=== PATIENT | female | born 1965 | race Caucasian/White ===

== ENCOUNTER → 2018-04-18 12:41 | Outpatient (CLI) | payer OTHER, SELFPAY | PROVIDERS: Family Provider Family Medicine; PCP Family Medicine; Visit Provider Family Medicine | DX: G56.21 Lesion of ulnar nerve, right upper limb (principal) | CPT/HCPCS: 95886; 95909 ==

== ENCOUNTER → 2018-04-18 14:17 | Outpatient (CLI) | payer OTHER, SELFPAY ==
--- NOTE | 2018-04-18 | DI.US.S_ITS ---
ULTRASOUND OF LEFT BREAST: 04/18/2018 CLINICAL: 6 month follow-up of prominent duct. Comparison is made to exams dated: 08/10/2017 ultrasound, 08/10/2017 mammogram, 07/31/2016 ultrasound, 07/31/2016 mammogram, 11/03/2015 ultrasound, and 11/03/2015 ultrasound [facility]. Color flow ultrasound of the left breast was performed on the areas of interest. Jacobo scale images of the real-time examination were reviewed. There is a stable benign dilated duct in the left breast at 6 o'clock anterior depth. This dilated duct displays internal echoes. Color flow imaging demonstrates that there is no vascularity present. IMPRESSION: BENIGN There is no sonographic evidence of malignancy. The stable dilated duct in the left breast is consistent with debris and is benign. A 1 year screening mammogram is recommended. This exam was interpreted at Station ID: [id number]. Electronically Signed By: Vandana mcnair/shailesh:04/18/2018 14:53:00 letter sent: Normal Exam Ultrasound BI-RADS: 2 Benign
== END ==
PROVIDERS: PCP Family Medicine; Visit Provider Family Medicine
DX: N60.42 Mammary duct ectasia of left breast (principal)
CPT/HCPCS: 76642; 95886; 95909

== ENCOUNTER 2018-07-08 14:30 | Outpatient (RCR) | payer OTHER, SELFPAY ==
--- NOTE | 2018-03-20 12:10 | PT.OIE ---
Current Diagnoses Other cervical disc degeneration, unspecified cervical region (03/20/18) Abnormal posture (03/20/18) Headache (03/20/18) Weakness (03/20/18) Past Surgical History Status post LASIK surgery Status post hysterectomy Provider Visit Care Team Role Provider Type Ok Chacko MD Attending Provider Physician Family Provider Primary Care Provider Specialty: Family Practice Address: [address] [place] [address], [facility] Email: .[facility] Physical Therapy Initial Evaluation PT-OP-A Visit Information Start: 01/21/18 07:29 Freq: Status: Active Protocol: Document 03/20/18 07:22 [facility] (Rec: 03/20/18 12:05 [facility] [id number]) Out-Patient Physical Therapy Visit Information Visit Information Visit Type Progress Note Visit Start Time 07:30 Visit Stop Time 08:30 Total Visit Minutes 60 Number of ENERGY CONSERVATION REPRESENTATIVE Visits 0 PT-OP-C Subjective Start: 01/21/18 07:29 Freq: Status: Active Protocol: Document 03/20/18 07:22 [facility] (Rec: 03/20/18 12:05 [facility] [id number]) OP-PT Subjective Patient Comments Patient Comments Pt reports she can ride her horse without pain and that has helped with her pain and dec in migraines over past week. Over all inc migraines and pain since her last PT session. Patient Questionnaires Neck Disability Index NDI Score (good day d/t off work for past 2 weeks) 30% PT-OP-K Range of Motion Start: 01/28/18 07:23 Freq: Status: Active Protocol: Document 03/20/18 07:22 [facility] (Rec: 03/20/18 12:05 [facility] [id number]) Cervical Spine Range of Motion Cervical Spine Active Degrees Testing Position Sitting Flexion 53 Extension 33 Rotation Left 40 Rotation Right 40 Lateral Flexion Left 27 Lateral Flexion Right 23 Comments pain w/SB & rot; feels like stop with motions PT-OP-M Strength Start: 01/28/18 07:23 Freq: Status: Active Protocol: Document 03/20/18 07:22 [facility] (Rec: 03/20/18 12:05 [facility] [id number]) Shoulder Strength Shoulder Manual Muscle Testing Right Flexion 5 Normal Extension 4 Good Abduction (C5) 5 Normal External Rotation 5 Normal Internal Rotation 5 Normal Left Flexion 4+ Good+ Extension 5 Normal Abduction (C5) 4+ Good+ External Rotation 4+ Good+ Horizontal Abduction 4+ Good+ PT-OP-Q Treatments Start: 01/21/18 07:29 Freq: Status: Active Protocol: Document 03/20/18 07:22 [facility] (Rec: 03/20/18 12:05 [facility] [id number]) Therapeutic Exercises Sidelying Exercises 1 Sidelying Exercise Name self rib mob Side bilateral Sitting Exercises 2 Sitting Exercise Name UT & LS stretches Manual Therapy Treatment Soft Tissue Mobilization 2 Body Location UT & LS Mobilization Type Rolling Intensity/Depth Moderate Body Position Sitting 1 Body Location post C-T junction Mobilization Type Myofascial Release Body Position Sitting Comments FM w/neck flex & rotations Joint Mobilizations 2 Joint C7 Direction L transverse FM Body Position Sitting 1 Joint 1st rib mob Direction caudal Body Position sit & s/l PT-OP-R Modalities Start: 01/21/18 07:29 Freq: Status: Active Protocol: Document 03/20/18 07:22 [facility] (Rec: 03/20/18 12:05 [facility] [id number]) Hot Pack/Cold Pack Treatment Hot Pack Location cervical Patient Position Hooklying Treatment Duration (minutes) 15 PT-OP-T Assessment and Plan Start: 01/21/18 07:29 Freq: Status: Active Protocol: Document 03/20/18 07:22 [facility] (Rec: 03/20/18 12:05 [facility] [id number]) Physical Therapy Assessment Rehab Potential Rehabilitation Potential Good Impairments Impairments Functional Activities Pain Posture ROM Soft Tissue Mobility Strength Goals Six Impairment migraines Short Term Goal (STG) 1x a week migraine STG Duration 04/20/18 Shelter Goal (LTG) no reported migranes for 2 weeks to prevent missing work. LTG Duration 05/21/18 Five Impairment functional ability Shelter Goal (LTG) Able to ride motorcycle without pain and tolerate full day of work with only inc to no greater than 2/10 pain. LTG Duration 05/21/18 Four Impairment NDI Shelter Goal (LTG) total 3 to show functional improvement LTG Duration 05/21/18 Three Impairment MMT Short Term Goal (STG) Indep HEP STG Duration 04/20/18 Ethanol Operations Manager Goal (LTG) 5/5 strength to UE to allow greater ease with daily life LTG Duration 05/21/18 Two Impairment ROM Shelter Goal (LTG) WNL Cervical ROM to allow pt to drive and work without pain LTG Duration 05/21/18 One Impairment posture Shelter Goal (LTG) good posture LTG Duration 05/21/18 Progress Towards Goals Progress Comments Pt has progressed well with prior therapy. D/t waiting for authorization, pt has had a lull in services for 2 months. Pt is motivated and has been doing home stretches & traction. She has had a decline in her functional ability since last time she was seen by PT d/t no PT services. She is noting improvement since having sit to stand desk, and is doing well today but she is just coming off 2 weeks of vacation and the last week she has not had to do much extended sitting. Assessment Summary Assessment Pt cont to have thoracic and cervical restrictions creating limitations in her ROM & functional abilities. Physical Therapy Plan Frequency and Duration Frequency of Treatment 1-2x/week Duration of Treatment 2 months Plan of Care Start Date 03/20/18 Plan of Care End Date 05/21/18 Therapeutic Interventions Therapeutic Interventions Home Exercise Program Joint Mobilizations Manual Therapy Self-Care/Home Management Soft Tissue Mobilization Taping Therapeutic Exercises Modalities Cold Pack/Ice Massage Electric Stimulation Hot Packs Traction- Mechanical Ultrasound Next Visit Focus/Plan Next Note Type Treatment Note Next Visit Plan thoracic mobs & rib mobs
--- NOTE | 2018-03-20 12:10 | PT.OPPOC ---
Current Diagnoses Other cervical disc degeneration, unspecified cervical region (03/20/18) Abnormal posture (03/20/18) Headache (03/20/18) Weakness (03/20/18) Provider Visit Care Team Role Provider Type Ok Chacko MD Attending Provider Physician Family Provider Primary Care Provider Specialty: Family Practice Address: [facility] [place], [address] Email: [email or web address] Plan Of Care PT-OP-T Assessment and Plan Start: 01/21/18 07:29 Freq: Status: Active Protocol: Document 03/20/18 07:22 [facility] (Rec: 03/20/18 12:05 [facility] [id number]) Physical Therapy Assessment Rehab Potential Rehabilitation Potential Good Impairments Impairments Functional Activities Pain Posture ROM Soft Tissue Mobility Strength Goals Six Impairment migraines Short Term Goal (STG) 1x a week migraine STG Duration 04/20/18 Senior Living Goal (LTG) no reported migranes for 2 weeks to prevent missing work. LTG Duration 05/21/18 Five Impairment functional ability Nurse Informatics Educator Goal (LTG) Able to ride motorcycle without pain and tolerate full day of work with only inc to no greater than 2/10 pain. LTG Duration 05/21/18 Four Impairment NDI Nurse Informatics Educator Goal (LTG) total 3 to show functional improvement LTG Duration 05/21/18 Three Impairment MMT Short Term Goal (STG) Indep HEP STG Duration 04/20/18 Senior Living Goal (LTG) 5/5 strength to UE to allow greater ease with daily life LTG Duration 05/21/18 Two Impairment ROM Senior Living Goal (LTG) WNL Cervical ROM to allow pt to drive and work without pain LTG Duration 05/21/18 One Impairment posture Nurse Informatics Educator Goal (LTG) good posture LTG Duration 05/21/18 Progress Towards Goals Progress Comments Pt has progressed well with prior therapy. D/t waiting for authorization, pt has had a lull in services for 2 months. Pt is motivated and has been doing home stretches & traction. She has had a decline in her functional ability since last time she was seen by PT d/t no PT services. She is noting improvement since having sit to stand desk, and is doing well today but she is just coming off 2 weeks of vacation and the last week she has not had to do much extended sitting. Assessment Summary Assessment Pt cont to have thoracic and cervical restrictions creating limitations in her ROM & functional abilities. Physical Therapy Plan Frequency and Duration Frequency of Treatment 1-2x/week Duration of Treatment 2 months Plan of Care Start Date 03/20/18 Plan of Care End Date 05/21/18 Therapeutic Interventions Therapeutic Interventions Home Exercise Program Joint Mobilizations Manual Therapy Self-Care/Home Management Soft Tissue Mobilization Taping Therapeutic Exercises Modalities Cold Pack/Ice Massage Electric Stimulation Hot Packs Traction- Mechanical Ultrasound Next Visit Focus/Plan Next Note Type Treatment Note Next Visit Plan thoracic mobs & rib mobs Plan of Care Dates Plan of Care Start Date 03/20/18 Plan of Care End Date 05/21/18 Please Sign and Return: I have reviewed this Plan of Care and certify that the skilled therapy services above are required to meet the patient?s needs. Physician Signature Date Printed Name and Credentials Clinical Instructor Signature Printed Name and Credentials
--- NOTE | 2018-04-24 10:53 | PT.OTN ---
Current Diagnoses Other cervical disc degeneration, unspecified cervical region (04/24/18) Abnormal posture (04/24/18) Headache (04/24/18) Weakness (04/24/18) Physical Therapy Treatment Note PT-OP-A Visit Information Start: 01/21/18 07:29 Freq: Status: Active Protocol: Document 04/24/18 10:45 [facility] (Rec: 04/24/18 10:53 [facility] [id number]) Out-Patient Physical Therapy Visit Information Visit Information Visit Type Treatment Note Visit Start Time 07:30 Visit Stop Time 08:30 Total Visit Minutes 60 Visit Number 10/03 Number of BOILER MAKER Visits 0 PT-OP-C Subjective Start: 01/21/18 07:29 Freq: Status: Active Protocol: Document 04/24/18 10:45 [facility] (Rec: 04/24/18 10:53 [facility] [id number]) OP-PT Subjective Patient Comments Patient Comments Pt reports migraines 3-4 times /week. Reports nerve conduction study did not find any location for impingement. Report she was told it may be coming from her neck. Notes she has been riding her horse 3 to 4 times a week to help with her migraines. She has to often leave work part way through the day to go home and take her migraine pill and sleep then come back a few hours later. Reports pain down RUE into palmar 4th and 5th digit with ability to reproduce with palpation of scalenes. PT-OP-K Range of Motion Start: 01/28/18 07:23 Freq: Status: Active Protocol: Document 03/20/18 07:22 [facility] (Rec: 03/20/18 12:05 [facility] [id number]) Cervical Spine Range of Motion Cervical Spine Active Degrees Testing Position Sitting Flexion 53 Extension 33 Rotation Left 40 Rotation Right 40 Lateral Flexion Left 27 Lateral Flexion Right 23 Comments pain w/SB & rot; feels like stop with motions PT-OP-M Strength Start: 01/28/18 07:23 Freq: Status: Active Protocol: Document 03/20/18 07:22 [facility] (Rec: 03/20/18 12:05 [facility] [id number]) Shoulder Strength Shoulder Manual Muscle Testing Right Flexion 5 Normal Extension 4 Good Abduction (C5) 5 Normal External Rotation 5 Normal Internal Rotation 5 Normal Left Flexion 4+ Good+ Extension 5 Normal Abduction (C5) 4+ Good+ External Rotation 4+ Good+ Horizontal Abduction 4+ Good+ PT-OP-Q Treatments Start: 01/21/18 07:29 Freq: Status: Active Protocol: Document 04/24/18 10:45 [facility] (Rec: 04/24/18 10:53 [facility] [id number]) Therapeutic Exercises Supine Exercises 2 Supine Exercise Name diaphragmatic breathing Comments w/ progression into quadrants 1 Supine Exercise Name axial elongation Sidelying Exercises 2 Sidelying Exercise Name roll & reach Standing Exercises 1 Standing Exercise Name pec corner stretch Manual Therapy Treatment Soft Tissue Mobilization 3 Body Location R diaphram Mobilization Type Sustained Pressure Comments FM w/LTR 2 Body Location UT & LS Mobilization Type Rolling Intensity/Depth Moderate Body Position Sitting 1 Body Location post C-T junction Mobilization Type Myofascial Release Body Position Sitting Comments FM w/neck flex & rotations Joint Mobilizations 1 Joint 1st rib mob Direction caudal Body Position sit & s/l Self-Care/Home Management Treatment Activities Self-Care/Home Management Activities Discussed doing foam roll exercises on a towel until she is less sensitive PT-OP-R Modalities Start: 01/21/18 07:29 Freq: Status: Active Protocol: Document 04/24/18 10:45 [facility] (Rec: 04/24/18 10:53 [facility] [id number]) Hot Pack/Cold Pack Treatment Hot Pack Location cervical Patient Position Hooklying Treatment Duration (minutes) 15 PT-OP-T Assessment and Plan Start: 01/21/18 07:29 Freq: Status: Active Protocol: Document 04/24/18 10:45 [facility] (Rec: 04/24/18 10:53 [facility] [id number]) Physical Therapy Assessment Goals Six Impairment migraines Short Term Goal (STG) 1x a week migraine STG Duration 04/20/18 Half-Way Goal (LTG) no reported migranes for 2 weeks to prevent missing work. LTG Duration 05/21/18 Five Impairment functional ability Half-Way Goal (LTG) Able to ride motorcycle without pain and tolerate full day of work with only inc to no greater than 2/10 pain. LTG Duration 05/21/18 Four Impairment NDI Manager Assurance Goal (LTG) total 3 to show functional improvement LTG Duration 05/21/18 Three Impairment MMT Short Term Goal (STG) Indep HEP STG Duration 04/20/18 Half-Way Goal (LTG) 5/5 strength to UE to allow greater ease with daily life LTG Duration 05/21/18 Two Impairment ROM Manager Assurance Goal (LTG) WNL Cervical ROM to allow pt to drive and work without pain LTG Duration 05/21/18 One Impairment posture Manager Assurance Goal (LTG) good posture LTG Duration 05/21/18 Assessment Summary Assessment Pt had tension & dec ROM with RUE elevation with STM to diaphram, demonstrating restiction in R diaphram limiting her R UE movement. Pt has significant soft tissue tightness since not attending PT regularly. She has dec diaphramatic breathing into R side of abdomen. Physical Therapy Plan Frequency and Duration Frequency of Treatment 1-2x/week Duration of Treatment 2 months Plan of Care Start Date 03/20/18 Plan of Care End Date 05/21/18 Next Visit Focus/Plan Next Note Type Treatment Note Next Visit Plan thoracic mobs & rib mobs; cont to work on diaphram, review further thoracic stretches
--- NOTE | 2018-05-01 09:12 | PT.OTN ---
Current Diagnoses Other cervical disc degeneration, unspecified cervical region (05/01/18) Abnormal posture (05/01/18) Headache (05/01/18) Weakness (05/01/18) Physical Therapy Treatment Note PT-OP-A Visit Information Start: 01/21/18 07:29 Freq: Status: Active Protocol: Document 05/01/18 07:30 [facility] (Rec: 05/01/18 09:09 [facility] [id number]) Out-Patient Physical Therapy Visit Information Visit Information Visit Type Treatment Note Visit Start Time 07:30 Visit Stop Time 08:25 Total Visit Minutes 55 Visit Number 11/03 Number of BARBER SHOP MANAGER Visits 0 PT-OP-C Subjective Start: 01/21/18 07:29 Freq: Status: Active Protocol: Document 05/01/18 07:30 [facility] (Rec: 05/01/18 09:09 [facility] [id number]) OP-PT Subjective Patient Comments Patient Comments Pt reports 3 migraines since last visit but is taking migraine meds daily before bed to prevent one from starting. Report she has had difficulty sleeping. PT-OP-K Range of Motion Start: 01/28/18 07:23 Freq: Status: Active Protocol: Document 03/20/18 07:22 [facility] (Rec: 03/20/18 12:05 [facility] [id number]) Cervical Spine Range of Motion Cervical Spine Active Degrees Testing Position Sitting Flexion 53 Extension 33 Rotation Left 40 Rotation Right 40 Lateral Flexion Left 27 Lateral Flexion Right 23 Comments pain w/SB & rot; feels like stop with motions PT-OP-M Strength Start: 01/28/18 07:23 Freq: Status: Active Protocol: Document 03/20/18 07:22 [facility] (Rec: 03/20/18 12:05 [facility] [id number]) Shoulder Strength Shoulder Manual Muscle Testing Right Flexion 5 Normal Extension 4 Good Abduction (C5) 5 Normal External Rotation 5 Normal Internal Rotation 5 Normal Left Flexion 4+ Good+ Extension 5 Normal Abduction (C5) 4+ Good+ External Rotation 4+ Good+ Horizontal Abduction 4+ Good+ PT-OP-Q Treatments Start: 01/21/18 07:29 Freq: Status: Active Protocol: Document 05/01/18 07:30 [facility] (Rec: 05/01/18 09:09 [facility] [id number]) Manual Therapy Treatment Soft Tissue Mobilization 4 Body Location cranial fascia Mobilization Type Myofascial Release 2 Body Location UT & LS Mobilization Type Rolling Intensity/Depth Moderate Body Position Sitting 1 Body Location post C-T junction Mobilization Type Myofascial Release Body Position Sitting Comments FM w/neck flex & rotations Joint Mobilizations 5 Joint cranial glides FM 4 Joint General PA to T3-7 Comments FM w/deep breathing 3 Joint T1-3 Direction transverse FM & PA 2 Joint C7 Direction L transverse FM Body Position Sitting 1 Joint 1st rib mob Direction caudal Body Position Supine PT-OP-R Modalities Start: 01/21/18 07:29 Freq: Status: Active Protocol: Document 05/01/18 07:30 [facility] (Rec: 05/01/18 09:10 [facility] [id number]) Hot Pack/Cold Pack Treatment Cold Pack Location cervical & upper thoracic Patient Position Hooklying Treatment Duration (minutes) 10 PT-OP-T Assessment and Plan Start: 01/21/18 07:29 Freq: Status: Active Protocol: Document 05/01/18 07:30 [facility] (Rec: 05/01/18 09:09 [facility] [id number]) Physical Therapy Assessment Goals Six Impairment migraines Short Term Goal (STG) 1x a week migraine STG Duration 04/20/18 Penitentiary Goal (LTG) no reported migranes for 2 weeks to prevent missing work. LTG Duration 05/21/18 Five Impairment functional ability Manager Privacy Goal (LTG) Able to ride motorcycle without pain and tolerate full day of work with only inc to no greater than 2/10 pain. LTG Duration 05/21/18 Four Impairment NDI Manager Privacy Goal (LTG) total 3 to show functional improvement LTG Duration 05/21/18 Three Impairment MMT Short Term Goal (STG) Indep HEP STG Duration 04/20/18 Penitentiary Goal (LTG) 5/5 strength to UE to allow greater ease with daily life LTG Duration 05/21/18 Two Impairment ROM Penitentiary Goal (LTG) WNL Cervical ROM to allow pt to drive and work without pain LTG Duration 05/21/18 One Impairment posture Penitentiary Goal (LTG) good posture LTG Duration 05/21/18 Assessment Summary Assessment Pt has significant tension in R cranial region and L UT/LS/ scalenes. She had relief of tension with 2 tennis balls under cervical region. Physical Therapy Plan Frequency and Duration Frequency of Treatment 1-2x/week Duration of Treatment 2 months Plan of Care Start Date 03/20/18 Plan of Care End Date 05/21/18 Next Visit Focus/Plan Next Note Type Treatment Note Next Visit Plan thoracic mobs & rib mobs; cont to work on diaphram, review further thoracic stretches
--- NOTE | 2018-05-08 09:46 | PT.OTN ---
Current Diagnoses Other cervical disc degeneration, unspecified cervical region (05/08/18) Abnormal posture (05/08/18) Headache (05/08/18) Weakness (05/08/18) Physical Therapy Treatment Note PT-OP-A Visit Information Start: 01/21/18 07:29 Freq: Status: Active Protocol: Document 05/08/18 07:30 [facility] (Rec: 05/08/18 09:46 [facility] [id number]) Out-Patient Physical Therapy Visit Information Visit Information Visit Type Treatment Note Visit Start Time 07:30 Visit Stop Time 08:30 Total Visit Minutes 60 Visit Number 12/01 Number of BOAT WRAPPER Visits 0 PT-OP-C Subjective Start: 01/21/18 07:29 Freq: Status: Active Protocol: Document 05/08/18 07:30 [facility] (Rec: 05/08/18 09:46 [facility] [id number]) OP-PT Subjective Patient Comments Patient Comments Pt reports she has to take a migraine pill at night otherwise she gets a migraine at night and cannot sleep. PT-OP-K Range of Motion Start: 01/28/18 07:23 Freq: Status: Active Protocol: Document 03/20/18 07:22 [facility] (Rec: 03/20/18 12:05 [facility] [id number]) Cervical Spine Range of Motion Cervical Spine Active Degrees Testing Position Sitting Flexion 53 Extension 33 Rotation Left 40 Rotation Right 40 Lateral Flexion Left 27 Lateral Flexion Right 23 Comments pain w/SB & rot; feels like stop with motions PT-OP-M Strength Start: 01/28/18 07:23 Freq: Status: Active Protocol: Document 03/20/18 07:22 [facility] (Rec: 03/20/18 12:05 [facility] [id number]) Shoulder Strength Shoulder Manual Muscle Testing Right Flexion 5 Normal Extension 4 Good Abduction (C5) 5 Normal External Rotation 5 Normal Internal Rotation 5 Normal Left Flexion 4+ Good+ Extension 5 Normal Abduction (C5) 4+ Good+ External Rotation 4+ Good+ Horizontal Abduction 4+ Good+ PT-OP-Q Treatments Start: 01/21/18 07:29 Freq: Status: Active Protocol: Document 05/08/18 07:30 [facility] (Rec: 05/08/18 09:46 [facility] [id number]) Therapeutic Exercises Standing Exercises 3 Standing Exercise Name ext shoulder Equipment Used L1 Reps/Minutes 10 2 Standing Exercise Name row Equipment Used L1 Reps/Minutes 10 Therapeutic Activity Therapeutic Activity 1 Name seated posture positioning Manual Therapy Treatment Soft Tissue Mobilization 5 Body Location Rhomboids Mobilization Type Myofascial Release Intensity/Depth Superficial 3 Body Location Pec Mobilization Type Rolling Joint Mobilizations 4 Joint General PA to T3-7 Comments FM w/deep breathing & rotation & R glides PT-OP-R Modalities Start: 01/21/18 07:29 Freq: Status: Active Protocol: Document 05/08/18 07:30 [facility] (Rec: 05/08/18 09:46 [facility] [id number]) Hot Pack/Cold Pack Treatment Hot Pack Location cervical & thoracic Patient Position Hooklying Treatment Duration (minutes) 15 PT-OP-T Assessment and Plan Start: 01/21/18 07:29 Freq: Status: Active Protocol: Document 05/08/18 07:30 [facility] (Rec: 05/08/18 09:46 [facility] [id number]) Physical Therapy Assessment Goals Six Impairment migraines Short Term Goal (STG) 1x a week migraine STG Duration 04/20/18 Skilled Nursing Goal (LTG) no reported migranes for 2 weeks to prevent missing work. LTG Duration 05/21/18 Five Impairment functional ability C[employer] Operator Goal (LTG) Able to ride motorcycle without pain and tolerate full day of work with only inc to no greater than 2/10 pain. LTG Duration 05/21/18 Four Impairment NDI [employer] Operator Goal (LTG) total 3 to show functional improvement LTG Duration 05/21/18 Three Impairment MMT Short Term Goal (STG) Indep HEP STG Duration 04/20/18 Skilled Nursing Goal (LTG) 5/5 strength to UE to allow greater ease with daily life LTG Duration 05/21/18 Two Impairment ROM [employer] Operator Goal (LTG) WNL Cervical ROM to allow pt to drive and work without pain LTG Duration 05/21/18 One Impairment posture Skilled Nursing Goal (LTG) good posture LTG Duration 05/21/18 Assessment Summary Assessment Pt with cont difficulty with posture. Improved with mult times cueing. [place] tight in RUE after rx. Pec on R side was significantly tight with inc thoracic tightness. Physical Therapy Plan Frequency and Duration Frequency of Treatment 1-2x/week Duration of Treatment 2 months Plan of Care Start Date 03/20/18 Plan of Care End Date 05/21/18 Next Visit Focus/Plan Next Note Type Treatment Note Next Visit Plan thoracic mobs & rib mobs; cont to work on diaphram, review further thoracic stretches
--- NOTE | 2018-05-27 16:00 | PT.OTN ---
Current Diagnoses Other cervical disc degeneration, unspecified cervical region (05/27/18) Abnormal posture (05/27/18) Headache (05/27/18) Weakness (05/27/18) Physical Therapy Treatment Note PT-OP-A Visit Information Start: 01/21/18 07:29 Freq: Status: Active Protocol: Document 05/27/18 07:34 [facility] (Rec: 05/27/18 15:59 [facility] [id number]) Out-Patient Physical Therapy Visit Information Visit Information Visit Type Treatment Note Visit Start Time 07:30 Visit Stop Time 08:40 Total Visit Minutes 70 Visit Number 01/01 Number of COOK PRESSURE Visits 0 PT-OP-C Subjective Start: 01/21/18 07:29 Freq: Status: Active Protocol: Document 05/27/18 07:34 [facility] (Rec: 05/27/18 16:00 [facility] [id number]) OP-PT Subjective Patient Comments Patient Comments Reports migraines still most nights PT-OP-K Range of Motion Start: 01/28/18 07:23 Freq: Status: Active Protocol: Document 05/27/18 07:34 [facility] (Rec: 05/27/18 07:47 [facility] [id number]) Cervical Spine Range of Motion Cervical Spine Active Degrees Testing Position Sitting Flexion 60 Extension 43 Rotation Left 52 Rotation Right 41 Lateral Flexion Left 25 Lateral Flexion Right 35 Comments pain w/SB & ext PT-OP-M Strength Start: 01/28/18 07:23 Freq: Status: Active Protocol: Document 03/20/18 07:22 [facility] (Rec: 03/20/18 12:05 [facility] [id number]) Shoulder Strength Shoulder Manual Muscle Testing Right Flexion 5 Normal Extension 4 Good Abduction (C5) 5 Normal External Rotation 5 Normal Internal Rotation 5 Normal Left Flexion 4+ Good+ Extension 5 Normal Abduction (C5) 4+ Good+ External Rotation 4+ Good+ Horizontal Abduction 4+ Good+ PT-OP-Q Treatments Start: 01/21/18 07:29 Freq: Status: Active Protocol: Document 05/27/18 07:34 [facility] (Rec: 05/27/18 15:59 [facility] [id number]) Therapeutic Activity Therapeutic Activity 2 Name standing postural positioning 1 Name seated posture positioning Manual Therapy Treatment Soft Tissue Mobilization 2 Body Location UT & LS & scalenes Mobilization Type Rolling Intensity/Depth Moderate Body Position Sitting 1 Body Location post & ant C-T junction Mobilization Type Myofascial Release Body Position Sitting Comments FM w/neck flex & rotations & axial elongation PT-OP-R Modalities Start: 01/21/18 07:29 Freq: Status: Active Protocol: Document 05/27/18 07:34 [facility] (Rec: 05/27/18 15:59 [facility] [id number]) Hot Pack/Cold Pack Treatment Hot Pack Location cervical & thoracic Patient Position Hooklying Treatment Duration (minutes) 15 Spinal Traction Traction Treatment Cervical Method Mechanical Patient Position Hooklying Force Applied (Pounds) 20 Duration of Treatment (Minutes) 10 Heating Pad Applied No PT-OP-T Assessment and Plan Start: 01/21/18 07:29 Freq: Status: Active Protocol: Document 05/27/18 07:34 [facility] (Rec: 05/27/18 15:59 [facility] [id number]) Physical Therapy Assessment Impairments Impairments Functional Activities Pain Posture ROM Soft Tissue Mobility Strength Goals Six Impairment migraines Short Term Goal (STG) 1x a week migraine STG Duration 06/26/18 [facility] Goal (LTG) no reported migranes for 2 weeks to prevent missing work. 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 LTG Duration 07/27/18 Four Impairment NDI [facility] Goal (LTG) total 3 to show functional improvement LTG Duration 07/27/18 Three Impairment MMT Short Term Goal (STG) Indep HEP STG Duration 06/26/18 [facility] Goal (LTG) 5/5 strength to UE to allow greater ease with daily life LTG Duration 07/27/18 Two Impairment ROM [facility] Goal (LTG) WNL Cervical ROM to allow pt to drive and work without pain LTG Duration 07/27/18 One Impairment posture Food Bagging Machine Operator Goal (LTG) good posture LTG Duration 07/27/1868-[id number] cues Assessment Summary Assessment Pt cont to require cueing for postural stability and encouraged to get on foam roll to help. Physical Therapy Plan Frequency and Duration Frequency of Treatment 1-2x/week Duration of Treatment 2 months Plan of Care Start Date 05/27/18 Plan of Care End Date 07/27/18 Therapeutic Interventions Therapeutic Interventions Home Exercise Program Joint Mobilizations Manual Therapy Self-Care/Home Management Soft Tissue Mobilization Taping Therapeutic Exercises Modalities Cold Pack/Ice Massage Electric Stimulation Hot Packs Traction- Mechanical Ultrasound Next Visit Focus/Plan Next Note Type Treatment Note Next Visit Plan Cont to work on postural stability
--- NOTE | 2018-05-27 16:00 | PT.OPPOC ---
Current Diagnoses Other cervical disc degeneration, unspecified cervical region (05/27/18) Abnormal posture (05/27/18) Headache (05/27/18) Weakness (05/27/18) Provider Visit Care Team Role Provider Type Ok Chacko MD Attending Provider Physician Family Provider Primary Care Provider Specialty: Family Practice Address: [address] [place], [address] Email: [email or web address] Plan Of Care PT-OP-T Assessment and Plan Start: 01/21/18 07:29 Freq: Status: Active Protocol: Document 05/27/18 07:34 [facility] (Rec: 05/27/18 15:59 [facility] [id number]) Physical Therapy Assessment Impairments Impairments Functional Activities Pain Posture ROM Soft Tissue Mobility Strength Goals Six Impairment migraines Short Term Goal (STG) 1x a week migraine STG Duration 06/26/18 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 LTG Duration 07/27/18 Five Impairment functional ability Marble Polisher Goal (LTG) Able to ride motorcycle without pain and tolerate full day of work with only inc to no greater than 2/10 pain. LTG Duration 07/27/18 Four Impairment NDI Marble Polisher Goal (LTG) total 3 to show functional improvement LTG Duration 07/27/18 Three Impairment MMT Short Term Goal (STG) Indep HEP STG Duration 06/26/18 Marble Polisher Goal (LTG) 5/5 strength to UE to allow greater ease with daily life LTG Duration 07/27/18 Two Impairment ROM [facility] Goal (LTG) WNL Cervical ROM to allow pt to drive and work without pain LTG Duration 07/27/18 One Impairment posture Marble Polisher Goal (LTG) good posture LTG Duration 07/27/1875-[id number] cues Assessment Summary Assessment Pt cont to require cueing for postural stability and encouraged to get on foam roll to help. Physical Therapy Plan Frequency and Duration Frequency of Treatment 1-2x/week Duration of Treatment 2 months Plan of Care Start Date 05/27/18 Plan of Care End Date 07/27/18 Therapeutic Interventions Therapeutic Interventions Home Exercise Program Joint Mobilizations Manual Therapy Self-Care/Home Management Soft Tissue Mobilization Taping Therapeutic Exercises Modalities Cold Pack/Ice Massage Electric Stimulation Hot Packs Traction- Mechanical Ultrasound Next Visit Focus/Plan Next Note Type Treatment Note Next Visit Plan Cont to work on postural stability Plan of Care Dates Plan of Care Start Date 05/27/18 Plan of Care End Date 07/27/18 Please Sign and Return: I have reviewed this Plan of Care and certify that the skilled therapy services above are required to meet the patient?s needs. Physician Signature Date Printed Name and Credentials Clinical Instructor Signature Printed Name and Credentials
--- NOTE | 2018-06-19 08:28 | PT.OTN ---
Current Diagnoses Other cervical disc degeneration, unspecified cervical region (06/19/18) Abnormal posture (06/19/18) Headache (06/19/18) Weakness (06/19/18) Physical Therapy Treatment Note PT-OP-A Visit Information Start: 01/21/18 07:29 Freq: Status: Active Protocol: Document 06/19/18 08:17 [facility] (Rec: 06/19/18 08:28 [facility] [id number]) Out-Patient Physical Therapy Visit Information Visit Information Visit Type Treatment Note Visit Start Time 07:30 Visit Stop Time 08:30 Total Visit Minutes 60 Visit Number 01/31 Number of WRAPPER REWINDER Visits 0 PT-OP-C Subjective Start: 01/21/18 07:29 Freq: Status: Active Protocol: Document 06/19/18 08:17 [facility] (Rec: 06/19/18 08:28 [facility] [id number]) OP-PT Subjective Patient Comments Patient Comments Pt reports she missed a few appts: first because she awoke with migraine and the others because she was on vacation. She felt great over vacation. She had 1 CARMICHAEL start in the AM but she started walking immediately and had caffeine and felt better. PT-OP-K Range of Motion Start: 01/28/18 07:23 Freq: Status: Active Protocol: Document 05/27/18 07:34 [facility] (Rec: 05/27/18 07:47 [facility] [id number]) Cervical Spine Range of Motion Cervical Spine Active Degrees Testing Position Sitting Flexion 60 Extension 43 Rotation Left 52 Rotation Right 41 Lateral Flexion Left 25 Lateral Flexion Right 35 Comments pain w/SB & ext PT-OP-M Strength Start: 01/28/18 07:23 Freq: Status: Active Protocol: Document 03/20/18 07:22 [facility] (Rec: 03/20/18 12:05 [facility] [id number]) Shoulder Strength Shoulder Manual Muscle Testing Right Flexion 5 Normal Extension 4 Good Abduction (C5) 5 Normal External Rotation 5 Normal Internal Rotation 5 Normal Left Flexion 4+ Good+ Extension 5 Normal Abduction (C5) 4+ Good+ External Rotation 4+ Good+ Horizontal Abduction 4+ Good+ PT-OP-Q Treatments Start: 01/21/18 07:29 Freq: Status: Active Protocol: Document 06/19/18 08:17 [facility] (Rec: 06/19/18 08:28 [facility] [id number]) Therapeutic Exercises Supine Exercises 3 Supine Exercise Name foam roll: flex, Habd, abd Standing Exercises 2 Standing Exercise Name wall posture 90/90 1 Standing Exercise Name pec corner stretch Manual Therapy Treatment Soft Tissue Mobilization 2 Body Location UT & LS & scalenes Mobilization Type Rolling Intensity/Depth Moderate Body Position Sitting Comments post to anterior 1 Body Location post & ant C-T junction Mobilization Type Myofascial Release Body Position Sitting Comments FM w/neck flex & rotations & axial elongation Joint Mobilizations 5 Joint clavicle Direction caudal PT-OP-R Modalities Start: 01/21/18 07:29 Freq: Status: Active Protocol: Document 06/19/18 08:17 [facility] (Rec: 06/19/18 08:28 [facility] [id number]) Hot Pack/Cold Pack Treatment Hot Pack Location cervical & thoracic Patient Position Hooklying Treatment Duration (minutes) 15 PT-OP-T Assessment and Plan Start: 01/21/18 07:29 Freq: Status: Active Protocol: Document 06/19/18 08:17 [facility] (Rec: 06/19/18 08:28 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 LTG Duration 07/27/18 Five Impairment functional ability [facility] Goal (LTG) Able to ride motorcycle without pain and tolerate full day of work with only inc to no greater than 2/10 pain. LTG Duration 07/27/18 Four Impairment NDI [facility] Goal (LTG) total 3 to show functional improvement LTG Duration 07/27/18 Three Impairment MMT Short Term Goal (STG) Indep HEP STG Duration 06/26/18 [facility] Goal (LTG) 5/5 strength to UE to allow greater ease with daily life LTG Duration 07/27/18 Two Impairment ROM [facility] Goal (LTG) WNL Cervical ROM to allow pt to drive and work without pain LTG Duration 07/27/18 One Impairment posture Grain Processor Goal (LTG) good posture LTG Duration 07/27/1801-ewuftkwvs-[id number] cues Assessment Summary Assessment Pt did better assuming good postural position today but cont to require cueing. Improved soft tisssue mobility with STM and improved shoulder flex after caudal glide of clavicle Physical Therapy Plan Frequency and Duration Frequency of Treatment 1-2x/week Duration of Treatment 2 months Plan of Care Start Date 05/27/18 Plan of Care End Date 07/27/18 Next Visit Focus/Plan Next Note Type Treatment Note Next Visit Plan Cont to work on postural stability
--- NOTE | 2018-06-26 11:06 | PT.OTN ---
Current Diagnoses Other cervical disc degeneration, unspecified cervical region (06/26/18) Abnormal posture (06/26/18) Headache (06/26/18) Weakness (06/26/18) Physical Therapy Treatment Note PT-OP-A Visit Information Start: 01/21/18 07:29 Freq: Status: Active Protocol: Document 06/26/18 10:59 [facility] (Rec: 06/26/18 11:04 [facility] [id number]) Out-Patient Physical Therapy Visit Information Visit Information Visit Type Treatment Note Visit Start Time 07:30 Visit Stop Time 08:30 Total Visit Minutes 60 Visit Number 03/03 Number of MEDICAL IMAGING TECHNICIAN Visits 0 PT-OP-C Subjective Start: 01/21/18 07:29 Freq: Status: Active Protocol: Document 06/26/18 10:59 [facility] (Rec: 06/26/18 11:06 [facility] [id number]) OP-PT Subjective Patient Comments Patient Comments Pt reports 1 migraine at the begininning of the AM yesterday that went away with use of ibu and during errands in the PM for work. PT-OP-K Range of Motion Start: 01/28/18 07:23 Freq: Status: Active Protocol: Document 05/27/18 07:34 [facility] (Rec: 05/27/18 07:47 [facility] [id number]) Cervical Spine Range of Motion Cervical Spine Active Degrees Testing Position Sitting Flexion 60 Extension 43 Rotation Left 52 Rotation Right 41 Lateral Flexion Left 25 Lateral Flexion Right 35 Comments pain w/SB & ext PT-OP-M Strength Start: 01/28/18 07:23 Freq: Status: Active Protocol: Document 03/20/18 07:22 [facility] (Rec: 03/20/18 12:05 [facility] [id number]) Shoulder Strength Shoulder Manual Muscle Testing Right Flexion 5 Normal Extension 4 Good Abduction (C5) 5 Normal External Rotation 5 Normal Internal Rotation 5 Normal Left Flexion 4+ Good+ Extension 5 Normal Abduction (C5) 4+ Good+ External Rotation 4+ Good+ Horizontal Abduction 4+ Good+ PT-OP-Q Treatments Start: 01/21/18 07:29 Freq: Status: Active Protocol: Document 06/26/18 10:59 [facility] (Rec: 06/26/18 11:04 [facility] [id number]) Therapeutic Exercises Supine Exercises 3 Supine Exercise Name foam roll: flex, Habd, abd Standing Exercises 2 Standing Exercise Name wall posture 90/90 1 Standing Exercise Name pec corner stretch Manual Therapy Treatment Soft Tissue Mobilization 2 Body Location UT & LS & scalenes Mobilization Type Rolling Intensity/Depth Moderate Body Position Sitting Comments post to anterior 1 Body Location post & ant C-T junction Mobilization Type Myofascial Release Body Position Sitting Comments FM w/neck flex & rotations & axial elongation PT-OP-R Modalities Start: 01/21/18 07:29 Freq: Status: Active Protocol: Document 06/26/18 10:59 [facility] (Rec: 06/26/18 11:06 [facility] [id number]) Hot Pack/Cold Pack Treatment Hot Pack Location cervical & thoracic Patient Position Hooklying Treatment Duration (minutes) 15 PT-OP-T Assessment and Plan Start: 01/21/18 07:29 Freq: Status: Active Protocol: Document 06/26/18 10:59 [facility] (Rec: 06/26/18 11:04 [facility] [id number]) Physical Therapy Assessment Goals Six Impairment migraines Short Term Goal (STG) 1x a week migraine STG Duration 06/26/18 [facility] Goal (LTG) no reported migranes for 2 weeks to prevent missing work. 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 LTG Duration 07/27/18 Four Impairment NDI Deli Clerk Goal (LTG) total 3 to show functional improvement LTG Duration 07/27/18 Three Impairment MMT Short Term Goal (STG) Indep HEP STG Duration 06/26/18 Deli Clerk Goal (LTG) 5/5 strength to UE to allow greater ease with daily life LTG Duration 07/27/18 Two Impairment ROM Deli Clerk Goal (LTG) WNL Cervical ROM to allow pt to drive and work without pain LTG Duration 07/27/18 One Impairment posture [facility] Goal (LTG) good posture LTG Duration 07/27/1800-qgfiqlcvy-mxwshwu cues Physical Therapy Plan Frequency and Duration Frequency of Treatment 1-2x/week Duration of Treatment 2 months Plan of Care Start Date 05/27/18 Plan of Care End Date 07/27/18 Next Visit Focus/Plan Next Note Type Treatment Note Next Visit Plan Cont to work on postural stability; PNF post depression & ant elevation
--- NOTE | 2018-06-28 11:37 | PT.OTN ---
Current Diagnoses Other cervical disc degeneration, unspecified cervical region (06/28/18) Abnormal posture (06/28/18) Headache (06/28/18) Weakness (06/28/18) Physical Therapy Treatment Note PT-OP-A Visit Information Start: 01/21/18 07:29 Freq: Status: Active Protocol: Document 06/28/18 10:56 [facility] (Rec: 06/28/18 11:36 [facility] [id number]) Out-Patient Physical Therapy Visit Information Visit Information Visit Type Treatment Note Visit Start Time 07:30 Visit Stop Time 08:40 Total Visit Minutes 70 Visit Number 04/02 Number of TOBACCO PACKING MACHINE OPERATOR Visits 0 PT-OP-C Subjective Start: 01/21/18 07:29 Freq: Status: Active Protocol: Document 06/28/18 10:56 [facility] (Rec: 06/28/18 11:36 [facility] [id number]) OP-PT Subjective Patient Comments Patient Comments Pt reports she woke up with a CARMICHAEL but it is already going away. [place] tight along paraspinals after last session . PT-OP-K Range of Motion Start: 01/28/18 07:23 Freq: Status: Active Protocol: Document 05/27/18 07:34 [facility] (Rec: 05/27/18 07:47 [facility] [id number]) Cervical Spine Range of Motion Cervical Spine Active Degrees Testing Position Sitting Flexion 60 Extension 43 Rotation Left 52 Rotation Right 41 Lateral Flexion Left 25 Lateral Flexion Right 35 Comments pain w/SB & ext PT-OP-M Strength Start: 01/28/18 07:23 Freq: Status: Active Protocol: Document 03/20/18 07:22 [facility] (Rec: 03/20/18 12:05 [facility] [id number]) Shoulder Strength Shoulder Manual Muscle Testing Right Flexion 5 Normal Extension 4 Good Abduction (C5) 5 Normal External Rotation 5 Normal Internal Rotation 5 Normal Left Flexion 4+ Good+ Extension 5 Normal Abduction (C5) 4+ Good+ External Rotation 4+ Good+ Horizontal Abduction 4+ Good+ PT-OP-Q Treatments Start: 01/21/18 07:29 Freq: Status: Active Protocol: Document 06/28/18 10:56 [facility] (Rec: 06/28/18 11:35 [facility] [id number]) Therapeutic Exercises Standing Exercises 2 Standing Exercise Name wall posture 90/90 1 Standing Exercise Name pec corner stretch Manual Therapy Treatment Soft Tissue Mobilization 4 Body Location cervical paraspinals Mobilization Type Rolling Body Position Sitting 2 Body Location UT & LS & scalenes Mobilization Type Rolling Intensity/Depth Moderate Body Position Sitting Comments post to anterior Joint Mobilizations 1 Joint 1st rib Direction caudal FM w/SB Neuro Re-Education Treatment Other Activities rhythmic stabilization Details In seated posture ant depression/post elevation Details rhythmic initiation to COI in each direction ant elevation/post depression Details rhythmic initiation to COI in each direction PT-OP-R Modalities Start: 01/21/18 07:29 Freq: Status: Active Protocol: Document 06/28/18 10:56 [facility] (Rec: 06/28/18 11:35 [facility] [id number]) Hot Pack/Cold Pack Treatment Hot Pack Location cervical & thoracic Patient Position Hooklying Treatment Duration (minutes) 15 Spinal Traction Traction Treatment Cervical Method Mechanical Patient Position Hooklying Force Applied (Pounds) 20 Duration of Treatment (Minutes) 10 Heating Pad Applied No PT-OP-T Assessment and Plan Start: 01/21/18 07:29 Freq: Status: Active Protocol: Document 06/28/18 10:56 [facility] (Rec: 06/28/18 11:35 [facility] [id number]) Physical Therapy Assessment Goals Six Impairment migraines Short Term Goal (STG) 1x a week migraine STG Duration 06/26/18 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 LTG Duration 07/27/18 Five Impairment functional ability Steam Blocker Goal (LTG) Able to ride motorcycle without pain and tolerate full day of work with only inc to no greater than 2/10 pain. LTG Duration 07/27/18 Four Impairment NDI Assisted Goal (LTG) total 3 to show functional improvement LTG Duration 07/27/18 Three Impairment MMT Short Term Goal (STG) Indep HEP STG Duration 06/26/18 Steam Blocker Goal (LTG) 5/5 strength to UE to allow greater ease with daily life LTG Duration 07/27/18 Two Impairment ROM Assisted Goal (LTG) WNL Cervical ROM to allow pt to drive and work without pain LTG Duration 07/27/18 One Impairment posture Steam Blocker Goal (LTG) good posture LTG Duration 07/27/1805-meuqfltpq-misyqvw cues Assessment Summary Assessment Pt had dec pain with PNF and is improving with stabilizing. She cont to have tightness post along tspine that does improve with STM Physical Therapy Plan Frequency and Duration Frequency of Treatment 1-2x/week Duration of Treatment 2 months Plan of Care Start Date 05/27/18 Plan of Care End Date 07/27/18 Next Visit Focus/Plan Next Note Type Treatment Note Next Visit Plan Cont to work on postural stability; PNF post depression & ant elevation; tspine mobs
--- NOTE | 2018-07-03 16:42 | PT.OTN ---
Current Diagnoses Other cervical disc degeneration, unspecified cervical region (07/03/18) Abnormal posture (07/03/18) Headache (07/03/18) Weakness (07/03/18) Physical Therapy Treatment Note PT-OP-A Visit Information Start: 01/21/18 07:29 Freq: Status: Active Protocol: Document 07/03/18 07:57 [facility] (Rec: 07/03/18 08:17 [facility] [id number]) Out-Patient Physical Therapy Visit Information Visit Information Visit Type Treatment Note Visit Start Time 07:30 Visit Stop Time 08:30 Total Visit Minutes 60 Visit Number 05/03 Number of INTERN ARCHITECT Visits 0 PT-OP-C Subjective Start: 01/21/18 07:29 Freq: Status: Active Protocol: Document 07/03/18 07:57 [facility] (Rec: 07/03/18 08:17 [facility] [id number]) OP-PT Subjective Patient Comments Patient Comments Reports she woke up with a migrane Sat and was able to go horseback riding and get her migraine to go away. On sunday Migraine started and was able to relieve with moving & stretching. PT-OP-K Range of Motion Start: 01/28/18 07:23 Freq: Status: Active Protocol: Document 05/27/18 07:34 [facility] (Rec: 05/27/18 07:47 [facility] [id number]) Cervical Spine Range of Motion Cervical Spine Active Degrees Testing Position Sitting Flexion 60 Extension 43 Rotation Left 52 Rotation Right 41 Lateral Flexion Left 25 Lateral Flexion Right 35 Comments pain w/SB & ext PT-OP-M Strength Start: 01/28/18 07:23 Freq: Status: Active Protocol: Document 03/20/18 07:22 [facility] (Rec: 03/20/18 12:05 [facility] [id number]) Shoulder Strength Shoulder Manual Muscle Testing Right Flexion 5 Normal Extension 4 Good Abduction (C5) 5 Normal External Rotation 5 Normal Internal Rotation 5 Normal Left Flexion 4+ Good+ Extension 5 Normal Abduction (C5) 4+ Good+ External Rotation 4+ Good+ Horizontal Abduction 4+ Good+ PT-OP-Q Treatments Start: 01/21/18 07:29 Freq: Status: Active Protocol: Document 07/03/18 07:57 [facility] (Rec: 07/03/18 16:42 [facility] [id number]) Manual Therapy Treatment Soft Tissue Mobilization 5 Body Location cranial fascia Mobilization Type Myofascial Release Intensity/Depth Superficial 4 Body Location cervical paraspinals Mobilization Type Rolling Body Position Sitting 2 Body Location UT & LS & scalenes Mobilization Type Rolling Intensity/Depth Moderate Body Position Sitting Comments post to anterior 1 Body Location post & ant C-T junction Mobilization Type Myofascial Release Body Position Sitting Comments FM w/neck flex & rotations & axial elongation PT-OP-R Modalities Start: 01/21/18 07:29 Freq: Status: Active Protocol: Document 07/03/18 07:57 [facility] (Rec: 07/03/18 16:42 [facility] [id number]) Hot Pack/Cold Pack Treatment Hot Pack Location cervical & thoracic Patient Position Hooklying Treatment Duration (minutes) 15 PT-OP-T Assessment and Plan Start: 01/21/18 07:29 Freq: Status: Active Protocol: Document 07/03/18 07:57 [facility] (Rec: 07/03/18 16:42 [facility] [id number]) Physical Therapy Assessment Goals Six Impairment migraines Short Term Goal (STG) 1x a week migraine STG Duration 06/26/18 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 LTG Duration 07/27/18 Five Impairment functional ability Nursing Home Goal (LTG) Able to ride motorcycle without pain and tolerate full day of work with only inc to no greater than 2/10 pain. LTG Duration 07/27/18 Four Impairment NDI Collision Repair Technician Goal (LTG) total 3 to show functional improvement LTG Duration 07/27/18 Three Impairment MMT Short Term Goal (STG) Indep HEP STG Duration 06/26/18 Nursing Home Goal (LTG) 5/5 strength to UE to allow greater ease with daily life LTG Duration 07/27/18 Two Impairment ROM Collision Repair Technician Goal (LTG) WNL Cervical ROM to allow pt to drive and work without pain LTG Duration 07/27/18 One Impairment posture Collision Repair Technician Goal (LTG) good posture LTG Duration 07/27/1825-lxepuesem-hsjimyo cues Assessment Summary Assessment Pt cont to improve with posture & soft tissue mobility with STM with functional mobilizations. She cont to have significant tightness in her scalenes and with pressure creates pain into hands. Physical Therapy Plan Frequency and Duration Frequency of Treatment 1-2x/week Duration of Treatment 2 months Plan of Care Start Date 05/27/18 Plan of Care End Date 07/27/18 Next Visit Focus/Plan Next Note Type Treatment Note Next Visit Plan Cont to work on postural stability; PNF post depression & ant elevation; tspine mobs
--- NOTE | 2018-07-08 15:47 | PT.OTN ---
Current Diagnoses Other cervical disc degeneration, unspecified cervical region (07/08/18) Abnormal posture (07/08/18) Headache (07/08/18) Weakness (07/08/18) Physical Therapy Treatment Note PT-OP-A Visit Information Start: 01/21/18 07:29 Freq: Status: Active Protocol: Document 07/08/18 15:33 [facility] (Rec: 07/08/18 15:47 [facility] [id number]) Out-Patient Physical Therapy Visit Information Visit Information Visit Type Treatment Note Visit Start Time 14:30 Visit Stop Time 15:30 Total Visit Minutes 60 Visit Number 06/03 Number of PRODUCT SUPPORT SPECIALIST Visits 0 PT-OP-C Subjective Start: 01/21/18 07:29 Freq: Status: Active Protocol: Document 07/08/18 15:33 [facility] (Rec: 07/08/18 15:47 [facility] [id number]) OP-PT Subjective Patient Comments Patient Comments Pt reports at 3 Am on Sat she woke with a migraine and had to take a pill. She started with CARMICHAEL today so stood most of the day at work until her legs were tired. PT-OP-K Range of Motion Start: 01/28/18 07:23 Freq: Status: Active Protocol: Document 05/27/18 07:34 [facility] (Rec: 05/27/18 07:47 [facility] [id number]) Cervical Spine Range of Motion Cervical Spine Active Degrees Testing Position Sitting Flexion 60 Extension 43 Rotation Left 52 Rotation Right 41 Lateral Flexion Left 25 Lateral Flexion Right 35 Comments pain w/SB & ext PT-OP-M Strength Start: 01/28/18 07:23 Freq: Status: Active Protocol: Document 03/20/18 07:22 [facility] (Rec: 03/20/18 12:05 [facility] [id number]) Shoulder Strength Shoulder Manual Muscle Testing Right Flexion 5 Normal Extension 4 Good Abduction (C5) 5 Normal External Rotation 5 Normal Internal Rotation 5 Normal Left Flexion 4+ Good+ Extension 5 Normal Abduction (C5) 4+ Good+ External Rotation 4+ Good+ Horizontal Abduction 4+ Good+ PT-OP-Q Treatments Start: 01/21/18 07:29 Freq: Status: Active Protocol: Document 07/08/18 15:33 [facility] (Rec: 07/08/18 15:47 [facility] [id number]) Therapeutic Exercises Supine Exercises thoracic ext Supine Exercise Name over foam roll Comments with neck support and deep breathing Standing Exercises 2 Standing Exercise Name wall posture 90/90 1 Standing Exercise Name pec corner stretch Manual Therapy Treatment Soft Tissue Mobilization 3 Body Location cervical paraspinals Mobilization Type Rolling 2 Body Location UT & LS & scalenes Mobilization Type Rolling Intensity/Depth Moderate Body Position Sitting Comments post to anterior Joint Mobilizations 5 Joint clavicle R Direction caudal 4 Joint thoracic Direction PA Body Position Sitting Comments w/B cover position 3 Joint C 5-T3 Direction transverse B Comments FM w/cover position & w/ AROM SB 1 Joint 1st rib Direction caudal FM w/SB PT-OP-R Modalities Start: 01/21/18 07:29 Freq: Status: Active Protocol: Document 07/08/18 15:33 [facility] (Rec: 07/08/18 15:47 [facility] [id number]) Hot Pack/Cold Pack Treatment Hot Pack Location cervical & thoracic Patient Position Hooklying Treatment Duration (minutes) 15 PT-OP-T Assessment and Plan Start: 01/21/18 07:29 Freq: Status: Active Protocol: Document 07/08/18 15:33 [facility] (Rec: 07/08/18 15:47 [facility] [id number]) Physical Therapy Assessment Goals Six Impairment migraines Short Term Goal (STG) 1x a week migraine STG Duration achieved Nursing Home Goal (LTG) no reported migranes for 2 weeks to prevent missing work. LTG Duration 07/27/18 Five Impairment functional ability Net Wpf Developer Goal (LTG) Able to ride motorcycle without pain and tolerate full day of work with only inc to no greater than 2/10 pain. LTG Duration 07/27/18 Four Impairment NDI Nursing Home Goal (LTG) total 3 to show functional improvement LTG Duration 07/27/18 Three Impairment MMT Short Term Goal (STG) Indep HEP STG Duration 06/26/18 Nursing Home Goal (LTG) 5/5 strength to UE to allow greater ease with daily life LTG Duration 07/27/18 Two Impairment ROM Net Wpf Developer Goal (LTG) WNL Cervical ROM to allow pt to drive and work without pain LTG Duration 07/27/18 One Impairment posture Nursing Home Goal (LTG) good posture LTG Duration 07/27/1887-asnoabaja-gecbhoc cues Assessment Summary Assessment Relief in upper thoracic pain with mobilizations & exercises . Min cueing still required with exercises. Physical Therapy Plan Frequency and Duration Frequency of Treatment 1-2x/week Duration of Treatment 2 months Plan of Care Start Date 05/27/18 Plan of Care End Date 07/27/18 Next Visit Focus/Plan Next Note Type Treatment Note Next Visit Plan PNF post depression & cont to work on stability & mobility of upper thoracic spine.
--- NOTE | 2018-08-22 09:40 | PT.OPDS ---
Current Diagnoses Other cervical disc degeneration, unspecified cervical region (07/08/18) Abnormal posture (07/08/18) Headache (07/08/18) Weakness (07/08/18) Provider Visit Care Team Role Provider Type Ok Chacko MD Attending Provider Physician Family Provider Primary Care Provider Specialty: Family Practice Address: [facility] [place], [address] Email: [email or web address] Visit Number Visit Number 06/03 Discharge Summary PT-OP-C Subjective Start: 01/21/18 07:29 Freq: Status: Active Protocol: Document 07/08/18 15:33 [facility] (Rec: 07/08/18 15:47 [facility] [id number]) OP-PT Subjective Patient Comments Patient Comments Pt reports at 3 Am on Sat she woke with a migraine and had to take a pill. She started with CARMICHAEL today so stood most of the day at work until her legs were tired. PT-OP-K Range of Motion Start: 01/28/18 07:23 Freq: Status: Active Protocol: Document 05/27/18 07:34 [facility] (Rec: 05/27/18 07:47 [facility] [id number]) Cervical Spine Range of Motion Cervical Spine Active Degrees Testing Position Sitting Flexion 60 Extension 43 Rotation Left 52 Rotation Right 41 Lateral Flexion Left 25 Lateral Flexion Right 35 Comments pain w/SB & ext PT-OP-M Strength Start: 01/28/18 07:23 Freq: Status: Active Protocol: Document 03/20/18 07:22 [facility] (Rec: 03/20/18 12:05 [facility] [id number]) Shoulder Strength Shoulder Manual Muscle Testing Right Flexion 5 Normal Extension 4 Good Abduction (C5) 5 Normal External Rotation 5 Normal Internal Rotation 5 Normal Left Flexion 4+ Good+ Extension 5 Normal Abduction (C5) 4+ Good+ External Rotation 4+ Good+ Horizontal Abduction 4+ Good+ PT-OP-T Assessment and Plan Start: 01/21/18 07:29 Freq: Status: Active Protocol: Document 08/22/18 09:39 [facility] (Rec: 08/22/18 09:40 [facility] [id number]) Physical Therapy Plan Discharge Physical Therapy Discharge Comments Pt is discharged d/t insurance denial. Pt was improving with therapy with less frequent migraines and less frequent debilitating neck pain. She was improving with her posture , ROM & strength, but did still have significant limitations that affected her ability to work.
== END 2018-08-23 11:00 ==
LOC: PHYS 14:30
PROVIDERS: Family Provider Family Medicine; PCP Family Medicine; Visit Provider Family Medicine
DX: M50.30 Other cervical disc degeneration, unspecified cervical region (principal); R51 Headache; R53.1 Weakness; R29.3 Abnormal posture
CPT/HCPCS: 97010; 97012; 97110; 97112; 97140; 97530

== ENCOUNTER → 2019-01-10 07:40 | Outpatient (CLI) | payer OTHER, SELFPAY ==
--- NOTE | 2019-01-10 | DI.MG.S_ITS ---
BILATERAL DIGITAL SCREENING MAMMOGRAM 3D/2D WITH CAD: 01/10/2019 CLINICAL: Routine screening. Family history of breast cancer. Comparison is made to exams dated: 08/10/2017 mammogram, 07/31/2016 mammogram, and 05/03/2015 mammogram - [facility]. The tissue of both breasts is heterogeneously dense. This may lower the sensitivity of mammography. Current study was also evaluated with a Computer Aided Detection (CAD) system. No significant masses, calcifications, or other findings are seen in either breast. There has been no significant interval change. IMPRESSION: NEGATIVE There is no mammographic evidence of malignancy. A 1 year screening mammogram is recommended. This exam was interpreted at Station ID: [id number]. NOTE: For mammograms, a report in lay terms will be sent to the patient. Approximately 15% of breast malignancies will not be visualized mammographically. In the management of a palpable breast mass, a negative mammogram must not discourage biopsy of a clinically suspicious lesion. Electronically Signed By: Vandana mcnair/shailesh:01/10/2019 08:11:42 letter sent: Normal Exam ACR BI-RADS Category 1: Negative [id number]
== END ==
PROVIDERS: Family Provider Family Medicine; PCP Family Medicine; Visit Provider Family Medicine
DX: Z12.31 Encounter for screening mammogram for malignant neoplasm of breast (principal); Z80.3 Family history of malignant neoplasm of breast
CPT/HCPCS: 77063; 77067

== ENCOUNTER → 2019-05-01 10:29 | Outpatient (CLI) | payer OTHER, SELFPAY ==
--- NOTE | 2019-05-01 15:09 | PM.TREADMILL ---
Cardiac Stress Test Report Referral & Results Date Patient Seen: 05/01/19 Indication: Dyspnea Rest ECG: Unremarkable Procedure Note: Today following both written and verbal informed consent the patient was exercised according to a standard Ricki protocol patient went for a total of 5 minutes 15 seconds achieving a maximum heart rate of 152 maximum systolic blood pressure of 170. This is approximately 7.0 METS. Exercise was terminated at this point because of targets were met. Patient was also given Cardiolite through a previously started Hep-Lock IV by the diagnostic imaging staff approximately 1 minute prior to the cessation of exercise. There are no ST-T segment changes identified Patient was hypertensive throughout. Minimally tachycardic as well. She did stop her beta-torsten prior to this exam Functional aerobic impairment rates about 15% sedentary scale Occasional PAC and PVC Impression: No ECG evidence of ischemia Significant hypertension off beta-torsten therapy Please see perfusion imaging report as well for details regarding possible ischemia Please note: Actual ECG tracings can be found in the PACS system.
--- NOTE | 2019-05-01 18:56 | DI.NM.S_ITS ---
DATE OF SERVICE: 05/01/2019 PROCEDURE: Exercise perfusion study. INDICATIONS: Chest pain, dyspnea, hypertension, hyperlipidemia. RADIOPHARMACEUTICAL: 24.2 mCi technetium-99m Myoview IV was injected at stress and 12.8 mCi technetium-99m Myoview IV was injected at rest. Please note, this is a 1-day protocol study only. CARDIAC STRESS: Patient underwent exercise perfusion study under the supervision of an attending staff using standard Ricki protocol. She walked on Ricki protocol for 5 minutes 15 seconds and achieved 90% of target heart rate. There was hypertensive blood pressure response. She was hypertensive to begin with. Baseline blood pressure reported to be 145/110 and peak blood pressure 170/120. Baseline EKG revealed sinus rhythm. Stress EKG did not reveal any obvious inducible ischemic changes. No significant symptoms were reported. No significant arrhythmias; however, during exercise, patient has occasional PVCs as well as ventricular couplet without any ventricular tachycardia. RAW DATA: There was breast shadow seen. GATED STUDY: Resting LV ejection fraction 78%, and stress LV ejection fraction 81%. No obvious wall motion abnormalities. Resting end-diastolic volume is 98 mL. No transient ischemic dilatation. TID ratio is 0.83, which is within normal limits. Lung/heart ratio is 0.34, which is within normal limits. MYOCARDIAL PERFUSION SCAN: Stress supine and resting supine revealed small-sized mildly decreased perfusion of anterior apex which got resolved during prone images suggestive of breast tissue attenuation artifact. No obvious ischemia infarction. CONCLUSION: I will call this study a normal myocardial perfusion study without any evidence of ischemia infarction. There was evidence of breast tissue attenuation artifact which got resolved during prone images. Patient was hypertensive to begin with . No significant sustained arrhythmias seen. Patient had perfusion study in 12/2016. At that time also she had similar perfusion defect. Overall, this is a low-risk myocardial perfusion scan. Anastasiya Balbuena - GOLD MARKER/ross/ doc#: [id number]/job#: [id number] dd: 05/01/2019 17:12:00 dt: 05/01/2019 18:36:00 DICTATING MD/COPIES TO: Clem Mojica MD COPIES MNE: JUAN DANIEL
== END ==
PROVIDERS: PCP Student in an Organized Health Care Education/Training Program; Visit Provider Family Medicine
DX: R07.89 Other chest pain (principal); R06.00 Dyspnea, unspecified
CPT/HCPCS: 78452; 93016; 93017; 93018; A9502

== ENCOUNTER 2019-07-17 11:38 | Day surgery (SDC) | payer OTHER, SELFPAY ==
--- NOTE | 2019-07-17 12:15 | PM.PREOP ---
Pre-operative Note Interval Note History & Physical reviewed/Exam performed by Physician: Yes Changes to H&P: No
[2019-07-17] MEDS: PROPARACAINE 0.5% OPHTH SOL 2 DROPS EYE-OP (12:25)
[2019-07-17 12:26] VITALS: BP 144/102; PULSE 60; RESP 15; TEMP 36.2; O2SAT 97; BMI 29.2
[2019-07-17] MEDS: CATARACT EYE COMPOUND (10 DROPS/SYRINGE) 3 DROPS EYE-OP (12:34)
[2019-07-17] MEDS: BALANCED SALT IRRIG SOLN NO.2 15 ML 5 ML IRR (13:33)
[2019-07-17] MEDS: LIDOCAINE 2% INJ SDV 2 ML INJ (13:34)
[2019-07-17] MEDS: CHONDROIDTIN/SOD HYALURONATE 1.05 ML SYRINGE INTRAOCULA (13:34)
[2019-07-17] MEDS: BALANCED SALT IRRIG SOLN NO.2 500 ML, EPINEPHrine 1 MG IRR (13:35)
[2019-07-17] MEDS: TETRACAINE 0.5% OPHTH DROPS 4 ML 2 DROPS EYE-OP (13:35)
[2019-07-17] MEDS: PHENYLEPHRINE/LIDOCAINE VIAL (OR) 0.2 ML EYE-OP (13:35)
[2019-07-17] MEDS: MOXIFLOXACIN INJ 5 MG/ML VIAL EYE-OP (13:35)
--- NOTE | 2019-07-17 13:54 | P.OP_ITS ---
Procedure & Clinicians Procedure: Cataract extraction with intraocular lens implant, left Same procedure as scheduled: Yes Indications: Visually significant age related nuclear sclerosis, left Surgeon: Ulises Murray Click Yes if Unassisted: Yes Anesthesia Type: MAC +/- Operative Notes Procedure in detail: The patient was brought to the operating suite. The correct patient, surgical site and lens were confirmed. 0.5 % tetracaine drops were placed in the left eye. The patient was prepped and draped in the typical sonam rile manner. A lid speculum was placed in the eye. 2% lidocaine was placed on the eye. A paracentesis port was created with a side-port blade. 0.1 mL of 1% preservative free lidocaine with phenylephrine was injected into the anterior chamber. Viscoelastic was injected into the anterior chamber. A 2.6mm keratome was used to create a clear corneal temporal incision. Cystotome and Utrata forceps were used to create a continuous curvilinear capsulorrhexis. Balanced salt solution was used to hydrodissect the nucleus. Phacoemulsification was used to remove the lens. The capsular bag was inflated with viscoelastic. A Hui ZCBOO +22.0D lens was inserted into the capsule. Viscoelastic was removed and the wound hydrated. The wound was found to be leak free and the eye was assessed to be at normal physiologic pressure. 0.1mL Vigamox was injected into the anterior chamber. The lid speculum was removed and the patient left the operating room in excellent condition. Complications: none Post-operative Condition: stable Disposition: same day surgery
[2019-07-17 14:03] VITALS: BP 139/90; PULSE 55; RESP 14; TEMP 36.3; O2SAT 93
--- NOTE | 2019-07-17 14:06 | SUR.PHASEII ---
PT ARRIVED TO PHASE 11 VIA STRETCHER. PT ALERT AND TALKING TO RN. PT BROUGHT TO BEDSIDE. BED IN LOWEST POSITION AND CALL LIGHT GIVEN TO PT. PT APPEARS COMFORTABLE. PT OPERATIVE EYE SHIELDED AND ABLE TO SEE OUT OF OPERATIVE EYE.
[2019-07-17 14:28] VITALS: BP 140/100; PULSE 57; RESP 16; TEMP 36; O2SAT 97
== END 2019-07-17 14:31 | disposition home or self-care (01) ==
LOC: OR 11:44
PROVIDERS: Family Provider Student in an Organized Health Care Education/Training Program; PCP Student in an Organized Health Care Education/Training Program; Visit Provider Ophthalmology
PROC: (CPT 66984; principal; 2019-07-17 13:00)
DX: H25.12 Age-related nuclear cataract, left eye (principal); I10 Essential (primary) hypertension
CPT/HCPCS: 66984; J0171; J2250; J2704; J3010

== ENCOUNTER 2021-03-31 13:45 | Outpatient (RCR) | payer OTHER, SELFPAY ==
--- NOTE | 2021-03-22 14:26 | PT.OIE ---
Current Diagnoses Strain of muscle, fascia and tendon at neck level, subsequent encounter (03/22/21) Past Medical History (Last Reviewed 02/10/19 @ 08:56 by Chadwick Bentley DO) Cervicogenic headache Past Surgical History (Last Reviewed 02/10/19 @ 08:56 by Chadwick Bentley DO) Status post hysterectomy Status post LASIK surgery Visit Care Team Role Provider Type Thais Esquivel MD Attending Provider Physician Family Provider Primary Care Provider Referring Provider Specialty: Family Practice Address: [address] [place] [address], [facility] [place] [place], [facility] Email: [email or web address] Physical Therapy Initial Evaluation PT-OP-A Visit Information Start: 03/22/21 08:02 Freq: Status: Active Protocol: Document 03/22/21 16:42 SAK (Rec: 03/22/21 16:57 SAK [id number]) Out-Patient Physical Therapy Visit Information Visit Information Visit Type Initial Evaluation Visit Start Time 14:30 Visit Stop Time 15:25 Total Visit Minutes 55 Visit Number 1 Number of RETAIL CASHIER Visits 0 Evaluation Information Evaluation Date 03/22/21 PT-OP-B Current Condition Start: 03/22/21 08:02 Freq: Status: Active Protocol: Document 03/22/21 16:42 SAK (Rec: 03/22/21 16:57 SAK [id number]) Current Condition History of Current Condition Onset Date 2016 Current Complaints Persistent, function-limiting neck pain, CARMICHAEL, upper back pain History of Current Condition Reports onset of pain while at a meeting with sudden onset intense, sharp headache and neck pain. Imaging at that time negative. Underwent PT at that time which was helpful in decreasing the frequency of her headaches and improving her posture and decreasing pain some. Without PT reports worsening of neck pain and dysfunction. States neck pain is constant, worst at night, or in stationary positions. Reports trying to sleep is hell, pain worse at night, can't get comfortable. Migraines decreased to 2-3 per week. Has home traction unit, uses when pain is really bad. Tries to do her HEP, has followed through with altering her workstation including a sit to stand desk. 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 Previously approved for trial of chiropractic but hasn't been able to find a chiropractor that accepts her insurance. Hasn't tried accupuncture. Uses regular cane for self massage in upper back. States the movement of gently riding her horse is helpful for pain, as movement seems helpful. Prior Treatments and Tests postural education, HEP, manual techniques, heat, traction, medication Future Testing and Treatments Planned will try further to find chiropractor that accepts her insurance Treatment Goals Patient/Caregiver Goals Decrease her pain to allow her to sleep, tolerate her prior level of function and activities. Prior Functional Status Baseline Function- ADL's Independent Baseline Function- Mobility Independent Baseline Function- Work/School no pain PT-OP-C Subjective Start: 03/22/21 08:02 Freq: Status: Active Protocol: Document 03/22/21 16:42 [facility] (Rec: 03/23/21 14:08 [facility] [id number]) Patient Questionnaires Neck Disability Index NDI Score 58% OP-PT Pain Assessment Pain Assessment Grid Paper Pain Assessment Grid Completed Yes Location migraines; entire head Intensity 9 central upper thoracic Intensity 5 cervical spine, sebastian upper traps Intensity 7 Description Aching,Chronic,Pressure,Tender ,Tightness Frequency Frequent Other Pain Aggravating Factors inactivity Other Pain Alleviating Factors movement PT-OP-F Manual Assessment Start: 03/22/21 08:02 Freq: Status: Active Protocol: Document 03/22/21 16:42 [facility] (Rec: 03/23/21 14:08 [facility] [id number]) Manual Assessments Soft Tissue Assessment Soft Tissue Mobility Assessment severe tightness throughout cervical spine and and posterior, bilateral upper traps, thoracic spine Joint Mobility Assessment Joint Mobility Assessment unable to assess due to muscle tightness and guarding, tenderness PT-OP-J Posture/Palpation/Skin Start: 03/22/21 08:02 Freq: Status: Active Protocol: Document 03/22/21 16:42 [facility] (Rec: 03/23/21 14:08 [facility] [id number]) Posture Evaluation Position Standing Head/C-Spine Posture Forward Head T-Spine Posture Increased Kyphosis Shoulder Posture (L) Rounded,(R) Rounded Scapula Posture (L) Protracted,(R) Protracted Arm Posture (L) Internally Rotated,(R) Internally Rotated Palpation Assessment Location cervical spine, UT, ant cervical mm Palpation Findings Soft Tissue Tightness,Muscle Guarding,Tenderness,Trigger Point PT-OP-K Range of Motion Start: 03/22/21 08:02 Freq: Status: Active Protocol: Document 03/22/21 16:42 [facility] (Rec: 03/23/21 14:08 [facility] [id number]) Cervical Spine Range of Motion Cervical Spine Active Testing Position Sitting Flexion 38 Extension 14 Rotation Left 41 Rotation Right 38 Lateral Flexion Left 12 Lateral Flexion Right 14 ROM Limitations Soft Tissue Tightness,Pain Comments most pain with extension then right sidebending. aching with other motions. Shoulder Goniometric Range of Motion Shoulder sebastian Shoulder ROM WFL Yes PT-OP-L Special Tests Start: 03/22/21 08:02 Freq: Status: Active Protocol: Document 03/22/21 16:42 [facility] (Rec: 03/23/21 14:08 [facility] [id number]) Special Tests Cervical Spine Special Tests Traction Test Results positive dec pain compression Test Results negative PT-OP-M Strength Start: 03/22/21 08:02 Freq: Status: Active Protocol: Document 03/22/21 16:42 [facility] (Rec: 03/23/21 14:08 [facility] [id number]) Cervical Spine Strength Cervical Spine Manual Muscle Testing Comments unable to assess due to pain Shoulder Strength Shoulder Manual Muscle Testing Right Flexion 5 Normal Abduction (C5) 5 Normal External Rotation 4 Good Internal Rotation 4 Good Left Flexion 5 Normal Abduction (C5) 5 Normal External Rotation 4+ Good+ Internal Rotation 4+ Good+ PT-OP-Q Treatments Start: 03/22/21 08:02 Freq: Status: Active Protocol: Document 03/22/21 16:42 [facility] (Rec: 03/22/21 16:57 [facility] [id number]) Self-Care/Home Management Treatment Education Patient Education Home Exercise Program,Pain Management,Posture Other Education took photos against posture grid for patient reference, issued picture of wall posture exercise PT-OP-R Modalities Start: 03/22/21 08:02 Freq: Status: Active Protocol: Document 03/22/21 16:42 [facility] (Rec: 03/22/21 16:57 [facility] [id number]) Hot Pack/Cold Pack Treatment Hot Pack Location cervical & thoracic Patient Position Hooklying Treatment Duration (minutes) 15 Patient Tolerance Good PT-OP-T Assessment and Plan Start: 03/22/21 08:02 Freq: Status: Active Protocol: Document 03/22/21 16:42 [facility] (Rec: 03/22/21 16:57 [facility] [id number]) Physical Therapy Assessment Rehab Potential Rehabilitation Potential Good Evaluation Complexity Number of Personal Factors/Comorbidities 1-2 Number of Body Systems Impaired 3 Clinical Presentation at Evaluation Evolving Impairments Impairments Activity Tolerance,Pain, Posture Goals Four Impairment neck disability index score 58 % Short Term Goal (STG) Decrease neck disability index score to no greater than 40% STG Duration 04/24/21 Assisted Goal (LTG) Decrease neck disability index score to no greater than 20% Three Impairment limited and painful neck ROM limiting tolerance for ADL's Assisted Goal (LTG) patient to demonstrate neck ROM WNL with min to no pain to allow her to perform all ADL' s with ease LTG Duration 05/25/21 Two Impairment postural dysfunction Short Term Goal (STG) patient to demonstrate good understanding of neutral postural alignment and be able to self-correct with min cues . STG Duration 04/24/21 Network Specialist Goal (LTG) Patient to be independent and compliant with HEP for purposes of postural correction and stabilization and be able to self-correct posture without cues LTG Duration 05/25/21 One Impairment Function-limiting neck, upper trap, upper back pain 7/10 Short Term Goal (STG) Decrease pain to no greater than 4/10 to allow patient to resume more of her usual activity STG Duration 04/24/21 Network Specialist Goal (LTG) Decrease pain to no greater than 2/10 with all usual activity LTG Duration 05/25/21 Assessment Summary Assessment Patient presents with chronic, function-limiting neck, upper trap, upper and mid thoracic spine pain as well as frequent migraines. Pain not related to any injury or trauma. At this time patient muscle guarding is very high and she does not tolerate cervical muscle strength testing due to tenderness with pressure. Denies N/T. Unable to test joint mobility cervical spine due to severe muscle guarding and tightness. Should benefit from PT for gentle progressive therapeutic exercise for postural correction and strengthening, ROM and flexibility, modalities and manual therapy as indicated to decrease pain and muscle tightness and guarding. Feel she would also benefit from pain neuroscience education to include video education Physical Therapy Plan Frequency and Duration Frequency of Treatment 16 visits Duration of Treatment 8 weeks Plan of Care Start Date 03/22/21 Plan of Care End Date 05/25/21 Therapeutic Interventions Therapeutic Interventions Home Exercise Program,Joint Mobilizations,Manual Therapy, Neuromuscular Re-education, Patient/Caregiver Education, Self-Care/Home Management, Sensory Integration,Soft Tissue Mobilization,Taping, Therapeutic Activities, Therapeutic Exercises Modalities Electric Stimulation,Hot Packs ,Infrared Therapy, Iontophoresis,Traction- Mechanical,Ultrasound Next Visit Focus/Plan Next Note Type Treatment Note Next Visit Plan Review prior HEP, modifications and corrections as indicated, posture and body mechanics education, modalities and manual therapy as indicated to include subocciptal release, manual traction and moist heat with IFES.
--- NOTE | 2021-03-22 14:27 | PT.OPPOC ---
Physical, Occupational & Speech Therapy At [facility] Current Diagnoses Strain of muscle, fascia and tendon at neck level, subsequent encounter (03/22/21) Visit Care Team Role Provider Type Thais Esquievl MD Attending Provider Physician Family Provider Primary Care Provider Referring Provider Specialty: [facility] Practice Address: [address] [place] [address], [id number] Email: [email or web address] Plan Of Care PT-OP-T Assessment and Plan Start: 03/22/21 08:02 Freq: Status: Active Protocol: Document 03/22/21 16:42 SAK (Rec: 03/22/21 16:57 SAK [id number]) Physical Therapy Assessment Rehab Potential Rehabilitation Potential Good Evaluation Complexity Number of Personal Factors/Comorbidities 1-2 Number of Body Systems Impaired 3 Clinical Presentation at Evaluation Evolving Impairments Impairments Activity Tolerance,Pain, Posture Goals Four Impairment neck disability index score 58 % Short Term Goal (STG) Decrease neck disability index score to no greater than 40% STG Duration 04/24/21 Riding Instructor Goal (LTG) Decrease neck disability index score to no greater than 20% Three Impairment limited and painful neck ROM limiting tolerance for ADL's Riding Instructor Goal (LTG) patient to demonstrate neck ROM WNL with min to no pain to allow her to perform all ADL' s with ease LTG Duration 05/25/21 Two Impairment postural dysfunction Short Term Goal (STG) patient to demonstrate good understanding of neutral postural alignment and be able to self-correct with min cues . STG Duration 04/24/21 Riding Instructor Goal (LTG) Patient to be independent and compliant with HEP for purposes of postural correction and stabilization and be able to self-correct posture without cues LTG Duration 05/25/21 One Impairment Function-limiting neck, upper trap, upper back pain 7/10 Short Term Goal (STG) Decrease pain to no greater than 4/10 to allow patient to resume more of her usual activity STG Duration 04/24/21 Riding Instructor Goal (LTG) Decrease pain to no greater than 2/10 with all usual activity LTG Duration 05/25/21 Assessment Summary Assessment Patient presents with chronic, function-limiting neck, upper trap, upper and mid thoracic spine pain as well as frequent migraines. Pain not related to any injury or trauma. At this time patient muscle guarding is very high and she does not tolerate cervical muscle strength testing due to tenderness with pressure. Denies N/T. Unable to test joint mobility cervical spine due to severe muscle guarding and tightness. Should benefit from PT for gentle progressive therapeutic exercise for postural correction and strengthening, ROM and flexibility, modalities and manual therapy as indicated to decrease pain and muscle tightness and guarding. Feel she would also benefit from pain neuroscience education to include video education Physical Therapy Plan Frequency and Duration Frequency of Treatment 16 visits Duration of Treatment 8 weeks Plan of Care Start Date 03/22/21 Plan of Care End Date 05/25/21 Therapeutic Interventions Therapeutic Interventions Home Exercise Program,Joint Mobilizations,Manual Therapy, Neuromuscular Re-education, Patient/Caregiver Education, Self-Care/Home Management, Sensory Integration,Soft Tissue Mobilization,Taping, Therapeutic Activities, Therapeutic Exercises Modalities Electric Stimulation,Hot Packs ,Infrared Therapy, Iontophoresis,Traction- Mechanical,Ultrasound Next Visit Focus/Plan Next Note Type Treatment Note Next Visit Plan Review prior HEP, modifications and corrections as indicated, posture and body mechanics education, modalities and manual therapy as indicated to include subocciptal release, manual traction and moist heat with IFES. Plan of Care Dates Plan of Care Start Date 03/22/21 Plan of Care End Date 05/25/21 Electronically Signed by: Dottie Beck, PT 03/23/21 0344 Please Sign and Return: I have reviewed this Plan of Care and certify that the skilled therapy services above are required to meet the patient?s needs. Physician Signature Date Printed Name and Credentials Clinical Instructor Signature Printed Name and Credentials
--- NOTE | 2021-03-24 18:32 | PT.OTN ---
Current Diagnoses Strain of muscle, fascia and tendon at neck level, subsequent encounter (03/24/21) Physical Therapy Treatment Note PT-OP-A Visit Information Start: 03/22/21 08:02 Freq: Status: Active Protocol: Document 03/22/21 16:42 SAK (Rec: 03/22/21 16:57 SAK [id number]) Out-Patient Physical Therapy Visit Information Visit Information Visit Type Initial Evaluation Visit Start Time 14:30 Visit Stop Time 15:25 Total Visit Minutes 55 Visit Number 1 Number of DELPHI DEVELOPER Visits 0 Evaluation Information Evaluation Date 03/22/21 PT-OP-B Current Condition Start: 03/22/21 08:02 Freq: Status: Active Protocol: Document 03/22/21 16:42 SAK (Rec: 03/22/21 16:57 SAK [id number]) Current Condition History of Current Condition Onset Date 2016 Current Complaints Persistent, function-limiting neck pain, CARMICHAEL, upper back pain History of Current Condition Reports onset of pain while at a meeting with sudden onset intense, sharp headache and neck pain. Imaging at that time negative. Underwent PT at that time which was helpful in decreasing the frequency of her headaches and improving her posture and decreasing pain some. Without PT reports worsening of neck pain and dysfunction. States neck pain is constant, worst at night, or in stationary positions. Reports trying to sleep is hell, pain worse at night, can't get comfortable. Migraines decreased to 2-3 per week. Has home traction unit, uses when pain is really bad. Tries to do her HEP, has followed through with altering her workstation including a sit to stand desk. 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 Previously approved for trial of chiropractic but hasn't been able to find a chiropractor that accepts her insurance. Hasn't tried accupuncture. Uses regular cane for self massage in upper back. States the movement of gently riding her horse is helpful for pain, as movement seems helpful. Prior Treatments and Tests postural education, HEP, manual techniques, heat, traction, medication Future Testing and Treatments Planned will try further to find chiropractor that accepts her insurance Treatment Goals Patient/Caregiver Goals Decrease her pain to allow her to sleep, tolerate her prior level of function and activities. 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 [place] a little better after last session. PT-OP-F Manual Assessment Start: 03/22/21 08:02 Freq: Status: Active Protocol: Document 03/22/21 16:42 [facility] (Rec: 03/23/21 14:08 [facility] [id number]) Manual Assessments Soft Tissue Assessment Soft Tissue Mobility Assessment severe tightness throughout cervical spine and and posterior, bilateral upper traps, thoracic spine Joint Mobility Assessment Joint Mobility Assessment unable to assess due to muscle tightness and guarding, tenderness PT-OP-J Posture/Palpation/Skin Start: 03/22/21 08:02 Freq: Status: Active Protocol: Document 03/22/21 16:42 [facility] (Rec: 03/23/21 14:08 [facility] [id number]) Posture Evaluation Position Standing Head/C-Spine Posture Forward Head T-Spine Posture Increased Kyphosis Shoulder Posture (L) Rounded,(R) Rounded Scapula Posture (L) Protracted,(R) Protracted Arm Posture (L) Internally Rotated,(R) Internally Rotated Palpation Assessment Location cervical spine, UT, ant cervical mm Palpation Findings Soft Tissue Tightness,Muscle Guarding,Tenderness,Trigger Point PT-OP-K Range of Motion Start: 03/22/21 08:02 Freq: Status: Active Protocol: Document 03/22/21 16:42 [facility] (Rec: 03/23/21 14:08 [facility] [id number]) Cervical Spine Range of Motion Cervical Spine Active Testing Position Sitting Flexion 38 Extension 14 Rotation Left 41 Rotation Right 38 Lateral Flexion Left 12 Lateral Flexion Right 14 ROM Limitations Soft Tissue Tightness,Pain Comments most pain with extension then right sidebending. aching with other motions. Shoulder Goniometric Range of Motion Shoulder sebastian Shoulder ROM WFL Yes PT-OP-L Special Tests Start: 03/22/21 08:02 Freq: Status: Active Protocol: Document 03/22/21 16:42 [facility] (Rec: 03/23/21 14:08 [facility] [id number]) Special Tests Cervical Spine Special Tests Traction Test Results positive dec pain compression Test Results negative PT-OP-M Strength Start: 03/22/21 08:02 Freq: Status: Active Protocol: Document 03/22/21 16:42 [facility] (Rec: 03/23/21 14:08 [facility] [id number]) Cervical Spine Strength Cervical Spine Manual Muscle Testing Comments unable to assess due to pain Shoulder Strength Shoulder Manual Muscle Testing Right Flexion 5 Normal Abduction (C5) 5 Normal External Rotation 4 Good Internal Rotation 4 Good Left Flexion 5 Normal Abduction (C5) 5 Normal External Rotation 4+ Good+ Internal Rotation 4+ Good+ PT-OP-Q Treatments Start: 03/22/21 08:02 Freq: Status: Active Protocol: Document 03/24/21 14:41 [facility] (Rec: 03/24/21 15:15 [facility] [id number]) Therapeutic Exercises Supine Exercises head lift Equipment Used noodle upper thoracic spine Reps/Minutes 5x angels Side bilateral Equipment Used noodle along spine Reps/Minutes 8x Comments with deep breathing Sidelying Exercises open book Reps/Minutes 3x ea side Comments gentle, cues for cervical rotation Sitting Exercises cervical ROM, neck rolls Reps/Minutes 5x Comments cues for exercise in pain-free ROM Standing Exercises doorway pec stretch Reps/Minutes 2x30 Comments arms down at sides Manual Therapy Treatment Taping upper traps Body Location sebastian upper traps Treatment Focus inhibition Type of Tape kinesiotape Skin Inspection intact Comments I strip, paper off tension from insertion to origin Self-Care/Home Management Treatment Education Patient Education Home Exercise Program,Pain Management,Posture Other Education Inital pain neuroscience education; given information on You-Tube videos. Shown Theracane for possible use at home for self massage; patient currently uses standard cane PT-OP-R Modalities Start: 03/22/21 08:02 Freq: Status: Active Protocol: Document 03/24/21 14:41 [facility] (Rec: 03/24/21 15:15 [facility] [id number]) Hot Pack/Cold Pack Treatment Hot Pack Location cervical & thoracic Patient Position Hooklying Treatment Duration (minutes) 15 Patient Tolerance Good PT-OP-T Assessment and Plan Start: 03/22/21 08:02 Freq: Status: Active Protocol: Document 03/24/21 14:41 [facility] (Rec: 03/24/21 15:15 [facility] [id number]) Physical Therapy Assessment Goals Four Impairment neck disability index score 58 % Short Term Goal (STG) Decrease neck disability index score to no greater than 40% STG Duration 04/24/21 Half-Way Goal (LTG) Decrease neck disability index score to no greater than 20% Three Impairment limited and painful neck ROM limiting tolerance for ADL's Half-Way Goal (LTG) patient to demonstrate neck ROM WNL with min to no pain to allow her to perform all ADL' s with ease LTG Duration 05/25/21 Two Impairment postural dysfunction Short Term Goal (STG) patient to demonstrate good understanding of neutral postural alignment and be able to self-correct with min cues . STG Duration 04/24/21 Half-Way Goal (LTG) Patient to be independent and compliant with HEP for purposes of postural correction and stabilization and be able to self-correct posture without cues LTG Duration 05/25/21 One Impairment Function-limiting neck, upper trap, upper back pain 7/10 Short Term Goal (STG) Decrease pain to no greater than 4/10 to allow patient to resume more of her usual activity STG Duration 04/24/21 Inventory Control Specialist Goal (LTG) Decrease pain to no greater than 2/10 with all usual activity LTG Duration 05/25/21 Assessment Summary Assessment Patient liked Theracane for self-mob, tolerated doorway stretch with arms down at sides well. Difficulty incorporating cervical ROM with open book. Trial kinesiotape for UT inhibition today, instructed to leave on no more than 5 days and remove if irritating; demonstrated good understanding. Physical Therapy Plan Frequency and Duration Frequency of Treatment 16 visits Duration of Treatment 8 weeks Plan of Care Start Date 03/22/21 Plan of Care End Date 05/25/21 Therapeutic Interventions Therapeutic Interventions Home Exercise Program,Joint Mobilizations,Manual Therapy, Neuromuscular Re-education, Patient/Caregiver Education, Self-Care/Home Management, Sensory Integration,Soft Tissue Mobilization,Taping, Therapeutic Activities, Therapeutic Exercises Modalities Electric Stimulation,Hot Packs ,Infrared Therapy, Iontophoresis,Traction- Mechanical,Ultrasound Next Visit Focus/Plan Next Note Type Treatment Note Next Visit Plan Review prior HEP, modifications and corrections as indicated, posture and body mechanics education, modalities and manual therapy as indicated to include subocciptal release, manual traction and moist heat with IFES.
--- NOTE | 2021-03-28 14:38 | PT.OTN ---
Current Diagnoses Strain of muscle, fascia and tendon at neck level, subsequent encounter (03/28/21) Physical Therapy Treatment Note PT-OP-A Visit Information Start: 03/22/21 08:02 Freq: Status: Active Protocol: Document 03/28/21 14:28 OF (Rec: 03/28/21 14:38 OF [id number]) Out-Patient Physical Therapy Visit Information Visit Information Visit Type Treatment Note Visit Start Time 13:45 Visit Stop Time 14:40 Total Visit Minutes 55 Visit Number 2 Evaluation Information Evaluation Date 03/22/21 PT-OP-B Current Condition Start: 03/22/21 08:02 Freq: Status: Active Protocol: Document 03/22/21 16:42 SAK (Rec: 03/22/21 16:57 SAK [id number]) Current Condition History of Current Condition Onset Date 2016 Current Complaints Persistent, function-limiting neck pain, CARMICHAEL, upper back pain History of Current Condition Reports onset of pain while at a meeting with sudden onset intense, sharp headache and neck pain. Imaging at that time negative. Underwent PT at that time which was helpful in decreasing the frequency of her headaches and improving her posture and decreasing pain some. Without PT reports worsening of neck pain and dysfunction. States neck pain is constant, worst at night, or in stationary positions. Reports trying to sleep is hell, pain worse at night, can't get comfortable. Migraines decreased to 2-3 per week. Has home traction unit, uses when pain is really bad. Tries to do her HEP, has followed through with altering her workstation including a sit to stand desk. 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 Previously approved for trial of chiropractic but hasn't been able to find a chiropractor that accepts her insurance. Hasn't tried accupuncture. Uses regular cane for self massage in upper back. States the movement of gently riding her horse is helpful for pain, as movement seems helpful. Prior Treatments and Tests postural education, HEP, manual techniques, heat, traction, medication Future Testing and Treatments Planned will try further to find chiropractor that accepts her insurance Treatment Goals Patient/Caregiver Goals Decrease her pain to allow her to sleep, tolerate her prior level of function and activities. Prior Functional Status Baseline Function- ADL's Independent Baseline Function- Mobility Independent Baseline Function- Work/School no pain PT-OP-C Subjective Start: 03/22/21 08:02 Freq: Status: Active Protocol: Document 03/28/21 14:28 OF (Rec: 03/28/21 14:38 OF [id number]) OP-PT Subjective Patient Comments Patient Comments pt reports using theracane at home and performing stretches as instructed Patient Reported Progress Improving OP-PT Pain Assessment Pain Assessment Grid Paper Pain Assessment Grid Completed 10/20 c spine PT-OP-F Manual Assessment Start: 03/22/21 08:02 Freq: Status: Active Protocol: Document 03/22/21 16:42 SAK (Rec: 03/23/21 14:08 SAK [id number]) Manual Assessments Soft Tissue Assessment Soft Tissue Mobility Assessment severe tightness throughout cervical spine and and posterior, bilateral upper traps, thoracic spine Joint Mobility Assessment Joint Mobility Assessment unable to assess due to muscle tightness and guarding, tenderness PT-OP-J Posture/Palpation/Skin Start: 03/22/21 08:02 Freq: Status: Active Protocol: Document 03/22/21 16:42 SAK (Rec: 03/23/21 14:08 SAK [id number]) Posture Evaluation Position Standing Head/C-Spine Posture Forward Head T-Spine Posture Increased Kyphosis Shoulder Posture (L) Rounded,(R) Rounded Scapula Posture (L) Protracted,(R) Protracted Arm Posture (L) Internally Rotated,(R) Internally Rotated Palpation Assessment Location cervical spine, UT, ant cervical mm Palpation Findings Soft Tissue Tightness,Muscle Guarding,Tenderness,Trigger Point PT-OP-K Range of Motion Start: 03/22/21 08:02 Freq: Status: Active Protocol: Document 03/22/21 16:42 SAK (Rec: 03/23/21 14:08 SAK [id number]) Cervical Spine Range of Motion Cervical Spine Active Testing Position Sitting Flexion 38 Extension 14 Rotation Left 41 Rotation Right 38 Lateral Flexion Left 12 Lateral Flexion Right 14 ROM Limitations Soft Tissue Tightness,Pain Comments most pain with extension then right sidebending. aching with other motions. Shoulder Goniometric Range of Motion Shoulder sebastian Shoulder ROM WFL Yes PT-OP-L Special Tests Start: 03/22/21 08:02 Freq: Status: Active Protocol: Document 03/22/21 16:42 SAK (Rec: 03/23/21 14:08 [facility] [id number]) Special Tests Cervical Spine Special Tests Traction Test Results positive dec pain compression Test Results negative PT-OP-M Strength Start: 03/22/21 08:02 Freq: Status: Active Protocol: Document 03/22/21 16:42 [facility] (Rec: 03/23/21 14:08 [facility] [id number]) Cervical Spine Strength Cervical Spine Manual Muscle Testing Comments unable to assess due to pain Shoulder Strength Shoulder Manual Muscle Testing Right Flexion 5 Normal Abduction (C5) 5 Normal External Rotation 4 Good Internal Rotation 4 Good Left Flexion 5 Normal Abduction (C5) 5 Normal External Rotation 4+ Good+ Internal Rotation 4+ Good+ PT-OP-Q Treatments Start: 03/22/21 08:02 Freq: Status: Active Protocol: Document 03/28/21 14:28 OF (Rec: 03/28/21 14:38 OF [id number]) Therapeutic Exercises Supine Exercises angels Side bilateral Equipment Used 1/2 bolster Reps/Minutes 5min Comments with deep breathing Sitting Exercises cervical ROM, neck rolls Reps/Minutes 5x Comments cues for exercise in pain-free ROM Standing Exercises doorway pec stretch Side bilateral Reps/Minutes 2x30 Comments arms down at sides 4 direction Manual Therapy Treatment Soft Tissue Mobilization 5 Body Location cranial fascia Mobilization Type Myofascial Release Intensity/Depth Superficial 4 Body Location cervical paraspinals Mobilization Type Rolling Body Position Sitting 3 Body Location cervical paraspinals Mobilization Type Rolling 1 Body Location post & ant C-T junction Mobilization Type Myofascial Release Intensity/Depth Moderate Body Position Sitting Comments supine, difficulty with sidelying Joint Mobilizations [address] junction Direction post/ant Grade II Reps/Duration 5min Self-Care/Home Management Treatment Education Patient Education Home Exercise Program PT-OP-R Modalities Start: 03/22/21 08:02 Freq: Status: Active Protocol: Document 03/24/21 14:41 [facility] (Rec: 03/24/21 15:15 [facility] [id number]) Hot Pack/Cold Pack Treatment Hot Pack Location cervical & thoracic Patient Position Hooklying Treatment Duration (minutes) 15 Patient Tolerance Good PT-OP-T Assessment and Plan Start: 03/22/21 08:02 Freq: Status: Active Protocol: Document 03/28/21 14:28 OF (Rec: 03/28/21 14:38 OF [id number]) Physical Therapy Assessment Rehab Potential Rehabilitation Potential Good Evaluation Complexity Number of Personal Factors/Comorbidities 1-2 Number of Body Systems Impaired 1-2 Clinical Presentation at Evaluation Stable Impairments Impairments Pain,Soft Tissue Mobility, Strength Goals Four Impairment neck disability index score 58 % Short Term Goal (STG) Decrease neck disability index score to no greater than 40% STG Duration 04/24/21 County Engineer Goal (LTG) Decrease neck disability index score to no greater than 20% Three Impairment limited and painful neck ROM limiting tolerance for ADL's [facility] Goal (LTG) patient to demonstrate neck ROM WNL with min to no pain to allow her to perform all ADL' s with ease LTG Duration 05/25/21 Two Impairment postural dysfunction Short Term Goal (STG) patient to demonstrate good understanding of neutral postural alignment and be able to self-correct with min cues . STG Duration 04/24/21 County Engineer Goal (LTG) Patient to be independent and compliant with HEP for purposes of postural correction and stabilization and be able to self-correct posture without cues LTG Duration 05/25/21 One Impairment Function-limiting neck, upper trap, upper back pain 7/10 Short Term Goal (STG) Decrease pain to no greater than 4/10 to allow patient to resume more of her usual activity STG Duration 04/24/21 [facility] Goal (LTG) Decrease pain to no greater than 2/10 with all usual activity LTG Duration 05/25/21 Progress Towards Goals Progress Towards Goals Progressing Toward Goals Assessment Summary Assessment pt has difficulty with extension, rotation. Pain limits ROM. She has had good response to sup angels and stretching. PA mobs reduced pain per pt. Physical Therapy Plan Frequency and Duration Frequency of Treatment 16 visits Duration of Treatment 8 weeks Plan of Care Start Date 03/22/21 Plan of Care End Date 05/25/21 Next Visit Focus/Plan Next Note Type Treatment Note Next Visit Plan Review prior HEP, modifications and corrections as indicated, posture and body mechanics education, subocciptal release PA mobs to CT junction improved
--- NOTE | 2021-03-31 14:29 | PT.OTN ---
Current Diagnoses Strain of muscle, fascia and tendon at neck level, subsequent encounter (03/31/21) Physical Therapy Treatment Note PT-OP-A Visit Information Start: 03/22/21 08:02 Freq: Status: Active Protocol: Document 03/31/21 14:23 OF (Rec: 03/31/21 14:29 OF [id number]) Out-Patient Physical Therapy Visit Information Visit Information Visit Type Treatment Note Visit Start Time 13:38 Visit Stop Time 14:18 Total Visit Minutes 40 Visit Number 3 Evaluation Information Evaluation Date 03/22/21 PT-OP-B Current Condition Start: 03/22/21 08:02 Freq: Status: Active Protocol: Document 03/22/21 16:42 SAK (Rec: 03/22/21 16:57 SAK [id number]) Current Condition History of Current Condition Onset Date 2016 Current Complaints Persistent, function-limiting neck pain, CARMICHAEL, upper back pain History of Current Condition Reports onset of pain while at a meeting with sudden onset intense, sharp headache and neck pain. Imaging at that time negative. Underwent PT at that time which was helpful in decreasing the frequency of her headaches and improving her posture and decreasing pain some. Without PT reports worsening of neck pain and dysfunction. States neck pain is constant, worst at night, or in stationary positions. Reports trying to sleep is hell, pain worse at night, can't get comfortable. Migraines decreased to 2-3 per week. Has home traction unit, uses when pain is really bad. Tries to do her HEP, has followed through with altering her workstation including a sit to stand desk. 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 Previously approved for trial of chiropractic but hasn't been able to find a chiropractor that accepts her insurance. Hasn't tried accupuncture. Uses regular cane for self massage in upper back. States the movement of gently riding her horse is helpful for pain, as movement seems helpful. Prior Treatments and Tests postural education, HEP, manual techniques, heat, traction, medication Future Testing and Treatments Planned will try further to find chiropractor that accepts her insurance Treatment Goals Patient/Caregiver Goals Decrease her pain to allow her to sleep, tolerate her prior level of function and activities. Prior Functional Status Baseline Function- ADL's Independent Baseline Function- Mobility Independent Baseline Function- Work/School no pain PT-OP-C Subjective Start: 03/22/21 08:02 Freq: Status: Active Protocol: Document 03/31/21 14:23 OF (Rec: 03/31/21 14:29 OF [id number]) OP-PT Subjective Patient Comments Patient Comments I felt the best after my last session, but today is bad Patient Reported Progress Same OP-PT Pain Assessment Location migraines; entire head Pain Location Details CT junction Intensity 4 Scale Used Numeric (0 - 10) Description Aching Frequency Frequent Pain Aggravating Factors Position,ADL's,Activity, Walking,Bending PT-OP-F Manual Assessment Start: 03/22/21 08:02 Freq: Status: Active Protocol: Document 03/22/21 16:42 SAK (Rec: 03/23/21 14:08 [facility] [id number]) Manual Assessments Soft Tissue Assessment Soft Tissue Mobility Assessment severe tightness throughout cervical spine and and posterior, bilateral upper traps, thoracic spine Joint Mobility Assessment Joint Mobility Assessment unable to assess due to muscle tightness and guarding, tenderness PT-OP-J Posture/Palpation/Skin Start: 03/22/21 08:02 Freq: Status: Active Protocol: Document 03/22/21 16:42 SAK (Rec: 03/23/21 14:08 [facility] [id number]) Posture Evaluation Position Standing Head/C-Spine Posture Forward Head T-Spine Posture Increased Kyphosis Shoulder Posture (L) Rounded,(R) Rounded Scapula Posture (L) Protracted,(R) Protracted Arm Posture (L) Internally Rotated,(R) Internally Rotated Palpation Assessment Location cervical spine, UT, ant cervical mm Palpation Findings Soft Tissue Tightness,Muscle Guarding,Tenderness,Trigger Point PT-OP-K Range of Motion Start: 03/22/21 08:02 Freq: Status: Active Protocol: Document 03/22/21 16:42 SAK (Rec: 03/23/21 14:08 SAK [id number]) Cervical Spine Range of Motion Cervical Spine Active Testing Position Sitting Flexion 38 Extension 14 Rotation Left 41 Rotation Right 38 Lateral Flexion Left 12 Lateral Flexion Right 14 ROM Limitations Soft Tissue Tightness,Pain Comments most pain with extension then right sidebending. aching with other motions. Shoulder Goniometric Range of Motion Shoulder sebastian Shoulder ROM WFL Yes PT-OP-L Special Tests Start: 03/22/21 08:02 Freq: Status: Active Protocol: Document 03/22/21 16:42 SAK (Rec: 03/23/21 14:08 SAK [id number]) Special Tests Cervical Spine Special Tests Traction Test Results positive dec pain compression Test Results negative PT-OP-M Strength Start: 03/22/21 08:02 Freq: Status: Active Protocol: Document 03/22/21 16:42 SAK (Rec: 03/23/21 14:08 [facility] [id number]) Cervical Spine Strength Cervical Spine Manual Muscle Testing Comments unable to assess due to pain Shoulder Strength Shoulder Manual Muscle Testing Right Flexion 5 Normal Abduction (C5) 5 Normal External Rotation 4 Good Internal Rotation 4 Good Left Flexion 5 Normal Abduction (C5) 5 Normal External Rotation 4+ Good+ Internal Rotation 4+ Good+ PT-OP-Q Treatments Start: 03/22/21 08:02 Freq: Status: Active Protocol: Document 03/31/21 14:23 OF (Rec: 03/31/21 14:29 OF [id number]) Therapeutic Exercises Supine Exercises chin tucks Reps/Minutes [id number] head lift Equipment Used 1/2 bolster Reps/Minutes 5x angels Side bilateral Equipment Used 1/2 bolster Reps/Minutes 5min Comments with deep breathing, no UE movement due to pain today Sitting Exercises cervical ROM, neck rolls Reps/Minutes 5x Comments cues for exercise in pain-free ROM Manual Therapy Treatment Soft Tissue Mobilization 5 Body Location cranial fascia Mobilization Type Sustained Pressure Intensity/Depth Moderate 4 Body Location cervical paraspinals Mobilization Type Rolling Intensity/Depth Moderate Body Position Supine 3 Body Location cervical paraspinals Mobilization Type Rolling 2 Body Location UT & LS & scalenes Mobilization Type Rolling Intensity/Depth Moderate Body Position Sitting Comments post to anterior 1 Body Location post & ant C-T junction Mobilization Type Myofascial Release Intensity/Depth Moderate Body Position Sitting Comments supine, difficulty with sidelying Joint Mobilizations [address] junction Direction post/ant Grade II Reps/Duration 5min 3 Joint C 5-T3 Direction transverse B Comments FM w/cover position & w/ AROM SB Self-Care/Home Management Treatment Education Patient Education Home Exercise Program PT-OP-R Modalities Start: 03/22/21 08:02 Freq: Status: Active Protocol: Document 03/24/21 14:41 SAK (Rec: 03/24/21 15:15 SAK [id number]) Hot Pack/Cold Pack Treatment Hot Pack Location cervical & thoracic Patient Position Hooklying Treatment Duration (minutes) 15 Patient Tolerance Good PT-OP-T Assessment and Plan Start: 03/22/21 08:02 Freq: Status: Active Protocol: Document 03/31/21 14:23 OF (Rec: 03/31/21 14:29 OF [id number]) Physical Therapy Assessment Rehab Potential Rehabilitation Potential Excellent Evaluation Complexity Number of Personal Factors/Comorbidities 1-2 Number of Body Systems Impaired 1-2 Clinical Presentation at Evaluation Stable Impairments Impairments Activity Tolerance,Pain,Soft Tissue Mobility,Strength Goals Four Impairment neck disability index score 58 % Short Term Goal (STG) Decrease neck disability index score to no greater than 40% STG Duration 04/24/21 [employer] Goal (LTG) Decrease neck disability index score to no greater than 20% Three Impairment limited and painful neck ROM limiting tolerance for ADL's [employer] Coach Goal (LTG) patient to demonstrate neck ROM WNL with min to no pain to allow her to perform all ADL' s with ease LTG Duration 05/25/21 Two Impairment postural dysfunction Short Term Goal (STG) patient to demonstrate good understanding of neutral postural alignment and be able to self-correct with min cues . STG Duration 04/24/21 Fpc Goal (LTG) Patient to be independent and compliant with HEP for purposes of postural correction and stabilization and be able to self-correct posture without cues LTG Duration 05/25/21 One Impairment Function-limiting neck, upper trap, upper back pain 7/10 Short Term Goal (STG) Decrease pain to no greater than 4/10 to allow patient to resume more of her usual activity STG Duration 04/24/21 Fpc Goal (LTG) Decrease pain to no greater than 2/10 with all usual activity LTG Duration 05/25/21 Progress Towards Goals Progress Towards Goals Slow Progress due to Activity Tolerance Assessment Summary Assessment Anastasiya was limited by pain today. She has difficult with exercise today, states she has theracane at home now, instructed upon beneficial position, AROM stretching to maximize STM at home. She does demonstrate good control with chin retractions. Physical Therapy Plan Frequency and Duration Frequency of Treatment 16 visits Duration of Treatment 8 weeks Plan of Care Start Date 03/22/21 Plan of Care End Date 05/25/21 Next Visit Focus/Plan Next Note Type Treatment Note Next Visit Plan Review prior HEP, modifications and corrections as indicated, posture and body mechanics education, subocciptal release PA mobs to CT junction improved symptoms per pt
--- NOTE | 2021-04-04 09:57 | PT-OP ANOTE ---
cancelled due to passing away unexpectedly
--- NOTE | 2021-04-18 17:10 | PT-OP ANOTE ---
cancelled PT due to of
--- NOTE | 2021-04-20 13:15 | PT-OP ANOTE ---
cancelled via [employer]
--- NOTE | 2021-05-31 09:27 | PT.OPDS ---
Current Diagnoses Strain of muscle, fascia and tendon at neck level, subsequent encounter (03/31/21) Visit Care Team Role Provider Type Thais Esquivel MD Attending Provider Physician Family Provider Primary Care Provider Referring Provider Specialty: Family Practice Address: [address] [place] [address], [address], [place], [address] Email: [email or web address] Visit Number Visit Number 3 Discharge Summary PT-OP-B Current Condition Start: 03/22/21 08:02 Freq: Status: Active Protocol: Document 03/22/21 16:42 SAK (Rec: 03/22/21 16:57 SAK [id number]) Current Condition History of Current Condition Onset Date 2016 Current Complaints Persistent, function-limiting neck pain, CARMICHAEL, upper back pain History of Current Condition Reports onset of pain while at a meeting with sudden onset intense, sharp headache and neck pain. Imaging at that time negative. Underwent PT at that time which was helpful in decreasing the frequency of her headaches and improving her posture and decreasing pain some. Without PT reports worsening of neck pain and dysfunction. States neck pain is constant, worst at night, or in stationary positions. Reports trying to sleep is hell, pain worse at night, can't get comfortable. Migraines decreased to 2-3 per week. Has home traction unit, uses when pain is really bad. Tries to do her HEP, has followed through with altering her workstation including a sit to stand desk. 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 Previously approved for trial of chiropractic but hasn't been able to find a chiropractor that accepts her insurance. Hasn't tried accupuncture. Uses regular cane for self massage in upper back. States the movement of gently riding her horse is helpful for pain, as movement seems helpful. Prior Treatments and Tests postural education, HEP, manual techniques, heat, traction, medication Future Testing and Treatments Planned will try further to find chiropractor that accepts her insurance Treatment Goals Patient/Caregiver Goals Decrease her pain to allow her to sleep, tolerate her prior level of function and activities. Prior Functional Status Baseline Function- ADL's Independent Baseline Function- Mobility Independent Baseline Function- Work/School no pain PT-OP-C Subjective Start: 03/22/21 08:02 Freq: Status: Active Protocol: Document 03/31/21 14:23 OF (Rec: 03/31/21 14:29 OF [id number]) OP-PT Subjective Patient Comments Patient Comments I felt the best after my last session, but today is bad Patient Reported Progress Same OP-PT Pain Assessment Location migraines; entire head Pain Location Details CT junction Intensity 4 Scale Used Numeric (0 - 10) Description Aching Frequency Frequent Pain Aggravating Factors Position,ADL's,Activity, Walking,Bending PT-OP-F Manual Assessment Start: 03/22/21 08:02 Freq: Status: Active Protocol: Document 03/22/21 16:42 SAK (Rec: 03/23/21 14:08 [facility] [id number]) Manual Assessments Soft Tissue Assessment Soft Tissue Mobility Assessment severe tightness throughout cervical spine and and posterior, bilateral upper traps, thoracic spine Joint Mobility Assessment Joint Mobility Assessment unable to assess due to muscle tightness and guarding, tenderness PT-OP-J Posture/Palpation/Skin Start: 03/22/21 08:02 Freq: Status: Active Protocol: Document 03/22/21 16:42 SAK (Rec: 03/23/21 14:08 [facility] [id number]) Posture Evaluation Position Standing Head/C-Spine Posture Forward Head T-Spine Posture Increased Kyphosis Shoulder Posture (L) Rounded,(R) Rounded Scapula Posture (L) Protracted,(R) Protracted Arm Posture (L) Internally Rotated,(R) Internally Rotated Palpation Assessment Location cervical spine, UT, ant cervical mm Palpation Findings Soft Tissue Tightness,Muscle Guarding,Tenderness,Trigger Point PT-OP-K Range of Motion Start: 03/22/21 08:02 Freq: Status: Active Protocol: Document 03/22/21 16:42 SAK (Rec: 03/23/21 14:08 [facility] [id number]) Cervical Spine Range of Motion Cervical Spine Active Testing Position Sitting Flexion 38 Extension 14 Rotation Left 41 Rotation Right 38 Lateral Flexion Left 12 Lateral Flexion Right 14 ROM Limitations Soft Tissue Tightness,Pain Comments most pain with extension then right sidebending. aching with other motions. Shoulder Goniometric Range of Motion Shoulder sebastian Shoulder ROM WFL Yes PT-OP-L Special Tests Start: 03/22/21 08:02 Freq: Status: Active Protocol: Document 03/22/21 16:42 [facility] (Rec: 03/23/21 14:08 [facility] [id number]) Special Tests Cervical Spine Special Tests Traction Test Results positive dec pain compression Test Results negative PT-OP-M Strength Start: 03/22/21 08:02 Freq: Status: Active Protocol: Document 03/22/21 16:42 [facility] (Rec: 03/23/21 14:08 [facility] [id number]) Cervical Spine Strength Cervical Spine Manual Muscle Testing Comments unable to assess due to pain Shoulder Strength Shoulder Manual Muscle Testing Right Flexion 5 Normal Abduction (C5) 5 Normal External Rotation 4 Good Internal Rotation 4 Good Left Flexion 5 Normal Abduction (C5) 5 Normal External Rotation 4+ Good+ Internal Rotation 4+ Good+ PT-OP-T Assessment and Plan Start: 03/22/21 08:02 Freq: Status: Active Protocol: Document 05/31/21 09:26 [facility] (Rec: 05/31/21 09:27 [facility] [id number]) Physical Therapy Plan Discharge Physical Therapy Discharge Reasons Patient Request Discharge Comments due to unexpected of
== END 2021-05-31 12:26 | disposition home or self-care (01) ==
LOC: PHYS 13:45
PROVIDERS: Family Provider Student in an Organized Health Care Education/Training Program; PCP Student in an Organized Health Care Education/Training Program; Referring Provider Student in an Organized Health Care Education/Training Program; Visit Provider Student in an Organized Health Care Education/Training Program
DX: S16.1XXD Strain of muscle, fascia and tendon at neck level, subsequent encounter (principal)
CPT/HCPCS: 97110; 97140; 97162; 97530; 97535

== ENCOUNTER → 2022-02-25 12:42 | Outpatient (CLI) | payer OTHER, SELFPAY ==
[2022-02-25 13:26] LABS: Influenza A - CEPHEID Flu A NEGATIVE (NEGATIVE); Influenza B - CEPHEID Flu B NEGATIVE (NEGATIVE)
[2022-02-25 13:39] LABS: COVID-19 CEPHEID PCR (VTM/NP) Negative (Negative)
== END ==
PROVIDERS: Family Provider Student in an Organized Health Care Education/Training Program; PCP Student in an Organized Health Care Education/Training Program; Visit Provider Nurse Practitioner Family
DX: R05.9 Cough, unspecified (principal); R50.9 Fever, unspecified
CPT/HCPCS: 0240U

== ENCOUNTER → 2022-08-22 09:31 | Outpatient (CLI) | payer OTHER, SELFPAY ==
--- NOTE | 2022-08-22 | DI.US.S_ITS ---
ULTRASOUND OF RIGHT BREAST AND AXILLA: 08/22/2022 CLINICAL: Focal right breast pain. Comparison is made to exams dated: 08/22/2022 mammogram, 01/10/2019 mammogram, 08/10/2017 mammogram, 11/03/2015 ultrasound, 07/31/2016 mammogram, and 11/03/2015 mammogram - [facility]. Color flow and real-time ultrasound of the right breast axilla were performed. Jacobo scale images of the real-time examination were reviewed. There is duct ectasia in the right breast at 9 o'clock in the retroareolar region. This duct ectasia displays internal echoes. This correlates with area of clinical concern. No significant abnormalities were seen sonographically in the right axilla. IMPRESSION: PROBABLY BENIGN The duct ectasia in the right breast is probably benign. Internal echoes favored to represent debris, differential includes intraductal mass. Similar findings were seen sonographically on ultrasound from 2014 and 2015. A follow-up ultrasound in 6 months is recommended. This exam was interpreted at Station ID: [id number]. Electronically Signed By: Boo Wilson M.D. lc/:08/22/2022 11:18:24 letter sent: Followup Recommended Ultrasound BI-RADS: 3 Probably benign
--- NOTE | 2022-08-22 | DI.MG.S_ITS ---
BILATERAL DIGITAL DIAGNOSTIC MAMMOGRAM 3D/2D: 08/22/2022 CLINICAL: Mastodynia. Comparison is made to exams dated: 01/10/2019 mammogram, 08/10/2017 mammogram, and 07/31/2016 mammogram - [facility]. Both breasts are heterogeneously dense, which may obscure small masses (category c / 51-75% glandular tissue). There is a 1.2 cm oval mass with a circumscribed margin in the left breast at 4 o'clock middle depth. This is more prominent. No other significant masses, calcifications, or other findings are seen in either breast. IMPRESSION: INCOMPLETE: NEEDS ADDITIONAL IMAGING EVALUATION The 1.2 cm oval mass in the left breast is indeterminate and more prominent than prior. Additional views with possible ultrasound are recommended. Further workup of this incidental left breast finding was not performed today. Patient will return for additional views and possible ultrasound. There is no abnormality seen in the right breast to correspond with the area of clinical concern. Right ultrasound report to follow. Based on the Tyrer Cuzick model (a risk assessment model) the patient's lifetime risk is 7.2% and her 10 year risk is 2.3%. According to the ACR, ACS, and NCCN guidelines, an annual breast MRI exam along with mammogram is recommended if the patient's lifetime risk is 20% or greater. This exam was interpreted at Station ID: [id number]. NOTE: For mammograms, a report in lay terms will be sent to the patient. Approximately 15% of breast malignancies will not be visualized mammographically. In the management of a palpable breast mass, a negative mammogram must not discourage biopsy of a clinically suspicious lesion. Electronically Signed By: Boo Wilson M.D. lc/:08/22/2022 11:15:13 letter sent: Additional Imaging Needed ACR BI-RADS Category 0: Incomplete 3340F
== END ==
PROVIDERS: Family Provider Student in an Organized Health Care Education/Training Program; PCP Student in an Organized Health Care Education/Training Program; Referring Provider Internal Medicine; Visit Provider Internal Medicine
DX: R92.8 Other abnormal and inconclusive findings on diagnostic imaging of breast (principal); N64.4 Mastodynia; N63.23 Unspecified lump in the left breast, lower outer quadrant; N60.41 Mammary duct ectasia of right breast
CPT/HCPCS: 76642; 77066; G0279

== ENCOUNTER → 2022-08-23 14:55 | Outpatient (CLI) | payer OTHER, SELFPAY ==
--- NOTE | 2022-08-23 15:14 | DI.ECHO.S_ITS ---
Interpretation Summary 1) Normal left ventricular thickness, size, wall motion, and systolic function (EF 60-65%). 2) Normal right ventricular size and function. 3) No significant valvular abnormalities. 4) The ascending aorta is mildly enlarged at 4.1cm. 5) No prior echo available for comparison. Procedure: A two-dimensional transthoracic echocardiogram with color flow and Doppler was performed. The study quality was technically adequate. There is no prior echocardiogram noted for this patient. The patient was in sinus rhythm with heart rates between 64-75 bpm during the exam. Left Ventricle: The left ventricle is normal in size and wall thickness. The ejection fraction is estimated to be 60-65%. Left ventricular systolic function appears normal without focal wall motion abnormalities. Diastolic parameters suggest a relaxation abnormality of the left ventricle, consistent with probable normal filling pressures. Right Ventricle: The right ventricle is normal in size and function. Atria: The left atrial size is normal. Right atrial size is normal. There is no Doppler evidence for an interatrial shunt. Mitral Valve: The mitral valve is normal in structure and function. There is no mitral regurgitation noted. Aortic Valve: The aortic valve is trileaflet. The aortic valve opens well. There is no aortic valve stenosis. No aortic regurgitation is present. Tricuspid Valve: The tricuspid valve is normal in structure and function. There is trace tricuspid regurgitation. Pulmonary artery pressures cannot be estimated because of the lack of a measurable TR jet velocity. Pulmonic Valve: The pulmonic valve is not well visualized. There is no pulmonic valvular regurgitation. Great Vessels: The aortic root is normal size. The ascending aorta is mildly enlarged. The IVC is of normal diameter and collapses greater than 50% with a sniff. This suggests a low right atrial pressure of 3 mm Hg. Pericardium/ Pleura There is no pericardial effusion. There is no pleural effusion. MMode/2D Measurements & Calculations LVIDd: 4.9 cm LVOT diam: 2.1 cm LVIDs: 2.9 cm Ao root diam: 2.8 cm FS: 40.0 % asc Aorta Diam: 4.1 cm IVSd: 0.86 cm Ao Arch Diam (Prox Trans): 3.0 cm LVPWd: 1.0 cm LV love. diameter/BSA (cm/m^2): 2.7 LV sys. diameter/BSA (cm/m^2): 1.6 LA A2 area: 18.2 cm2 RA long axis: 4.8 cm LA A4 area: 13.9 cm2 RA area: 13.4 cm2 LA length (vol): 4.8 cm RA vol: 31.8 ml LA vol: 44.9 ml RA : 17.9 ml/m2 LA vol index: 25.2 ml/m2 IVC diam: 0.98 cm RVD1 (basal): 3.3 cm TAPSE: 1.9 cm Doppler Measurements & Calculations Ao V2 max: 161.6 cm/sec LVOT Max Ranjit: 99.3 cm/sec Ao V2 mean: 113.3 cm/sec LV V1 max P.9 mmHg Ao max P.4 mmHg LV V1 VTI: 23.1 cm Ao mean P.7 mmHg SAQIB(I,D): 2.4 cm2 Ao V2 VTI: 35.4 cm SAQIB(V,D): 2.2 cm2 sev ratio: 0.65 SAQIB indexed to BSA (cm^2/m^2): 1.3 MV E max ranjit: 63.2 cm/sec PA V2 max: 82.7 cm/sec MV A max ranjit: 95.0 cm/sec PA V2 mean: 54.5 cm/sec MV E/A: 0.67 PA mean P.4 mmHg Med Peak E' Ranjit: 7.2 cm/sec PA pr(Accel): 34.5 mmHg E/E' med: 8.8 Lat Peak E' Ranjit: 9.1 cm/sec E/E' lat: 6.9 E/e' average: 7.9 MV dec time: 0.22 sec SV(LVOT): 83.3 ml Reading Physician:07:22 PM
== END ==
PROVIDERS: Family Provider Student in an Organized Health Care Education/Training Program; PCP Registered Nurse; Referring Provider Internal Medicine Cardiovascular Disease; Visit Provider Internal Medicine Cardiovascular Disease
DX: I77.89 Other specified disorders of arteries and arterioles (principal)
CPT/HCPCS: 93306

== ENCOUNTER → 2022-10-03 09:17 | Outpatient (CLI) | payer OTHER, SELFPAY ==
--- NOTE | 2022-10-03 | DI.MG.S_ITS ---
UNILATERAL LEFT DIGITAL DIAGNOSTIC MAMMOGRAM 3D/2D WITH ADDITIONAL VIEWS: 10/03/2022 CLINICAL: Patient returns today to evaluate a focal asymmetry in the left breast. Comparison is made to exams dated: 08/22/2022 mammogram, 01/10/2019 mammogram, and 08/10/2017 mammogram - [facility]. The left breast is heterogeneously dense, which may obscure small masses (category c / 51-75% glandular tissue). There is a 1.4 cm oval mass with a circumscribed margin in the left breast at 5 o'clock middle depth. This is seen in additional views. This is more prominent. No other significant masses or calcifications are seen in the breast. IMPRESSION: INCOMPLETE: NEEDS ADDITIONAL IMAGING EVALUATION The 1.4 cm oval mass in the left breast resembles a cyst and is indeterminate. An ultrasound is recommended for further evaluation and is scheduled to immediately follow this examination. Based on the Tyrer Cuzick model (a risk assessment model) the patient's lifetime risk is 7.2% and her 10 year risk is 2.3%. According to the ACR, ACS, and NCCN guidelines, an annual breast MRI exam along with mammogram is recommended if the patient's lifetime risk is 20% or greater. This exam was interpreted at Station ID: [id number]. NOTE: For mammograms, a report in lay terms will be sent to the patient. Approximately 15% of breast malignancies will not be visualized mammographically. In the management of a palpable breast mass, a negative mammogram must not discourage biopsy of a clinically suspicious lesion. Electronically Signed By: Devon Tran M.D. aty/:10/03/2022 09:56:44 ACR BI-RADS Category 0: Incomplete 3340F
--- NOTE | 2022-10-03 | DI.US.S_ITS ---
ULTRASOUND OF LEFT BREAST: 10/03/2022 CLINICAL: Patient returns today to evaluate a focal asymmetry in the left breast. Comparison is made to exams dated: 10/03/2022 mammogram, 08/22/2022 mammogram, 01/10/2019 mammogram, 04/18/2018 ultrasound, 08/10/2017 ultrasound, and 07/31/2016 ultrasound - [facility]. Color flow and real-time ultrasound of the left breast were performed. Jacobo scale images of the real-time examination were reviewed. There are duct ectasia in the left breast in the sub-areolar depth that are incidental findings. There is a 1 cm x 0.8 cm x 1 cm oval cyst with smooth internal ortega in the left breast at 4 o'clock middle depth 6 cm from the nipple. This oval cyst is hypoechoic with a well-defined boundary, internal echoes, and posterior acoustic enhancement. This correlates with mammography findings. Color flow imaging demonstrates that there is an adjacent vascularity. IMPRESSION: PROBABLY BENIGN The 1 cm x 0.8 cm x 1 cm oval cyst in the left breast is consistent with a complicated cyst and is probably benign. Incidental ductal ectasia. A follow-up left mammogram and left ultrasound in 6 months is recommended to demonstrate stability. Findings and recommendations were conveyed to the patient during today's evaluation. This exam was interpreted at Station ID: [id number]. Electronically Signed By: Devon Tran M.D. aty/:10/03/2022 10:31:56 letter sent: Followup Recommended Ultrasound BI-RADS: 3 Probably benign
== END ==
PROVIDERS: Family Provider Student in an Organized Health Care Education/Training Program; PCP Registered Nurse; Referring Provider Registered Nurse; Visit Provider Registered Nurse
DX: R92.8 Other abnormal and inconclusive findings on diagnostic imaging of breast (principal)
CPT/HCPCS: 76642; 77065; G0279

== ENCOUNTER → 2022-12-05 14:45 | Outpatient (CLI) | payer OTHER, SELFPAY ==
--- NOTE | 2022-12-07 15:17 | DIET.OUTPTC ---
Dietary Outpatient Consultation Note Consultation Date: 12/07/2022 57 y/o F recently diagnosed with T2DM.? Pt is interested in learning about; taking medications, problem solving for BS, treating DM on sick days, stress management, eating/nutrition (on the go ideas), monitoring BS, and reducing risks of DM complications. No family history of diabetes (grandparents unknown), however, there is a family history of heart disease, high cholesterol, high blood pressure, and heart attack/stroke.? Pt is stressed and is still grieving after losing her 2 yrs ago. 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 Pt does not have a glucometer and is interested in a CGM. Pt tends to feel shaky in the morning prior to breakfast and when she is lacking protein (always adds protein to meals). Pt reports frequently eating out and rarely cooks. When she does eat in, it is freezer to microwave.? Eats out at: [employer] (steak and potatoes, wonton sandwiches), [employer] 2-3 x/week, [employer]? Usually eats on the go in the car or at the [employer]? Diet Recall: Wake: 7-9 am B: (7-9 am) breakfast sandwich or PB with crackers. L: eat when she feels hungry. D: (6-10 pm) food OR steak and potatoes OR stir gill OR restaurant typically.? Bed: 10-1am ETOH: 3-5 drinks per week. 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 Ht: 64 inches / 162.56 cm Wt: 166 lbs / 75.45 kg Labs: A1c 7.4% Medications: currently taking 500 mg Metformin 1x/day. Plans to increase dosage but is having diarrhea which she is taking Imodium daily for. Diagnosis: altered nutrition related laboratory values (A1c) r/t newly diagnosed T2DM aeb A1c 7.4%, no prior DM education, diet recall suggesting a diet inconsistent with DM recommendations (high CHO).? Intervention: 1. Educated pt on what A1c and glucose means, ranges, and what is happening in the body.? 2. Recommended checking BG a few times a day with glucometer. 3. Discussed how stress affects the body. 4. Educated pt on low blood sugar and how to treat it. The 15 Rule.? 5. Educated pt on high blood sugar and treatment (exercise). 6. Educated pt on CHO counting using handout. Recommended 15-30 g CHO per snack, 30-45 g CHO per meal, and pairing CHO with protein.? 7. Educated pt on label reading.? 8. Suggested DM education classes.? 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 2. Be mindful of CHO intake.? Order glucometer test strips and lancets.? Electronically Signed by: Katelyn Monroy 12/07/22 15:17 Clinical Dietitian [address] [id number]
== END ==
PROVIDERS: Family Provider Registered Nurse; PCP Registered Nurse; Referring Provider Registered Nurse; Visit Provider Registered Nurse
DX: E11.9 Type 2 diabetes mellitus without complications (principal); Z79.84 Long term (current) use of oral hypoglycemic drugs; Z71.3 Dietary counseling and surveillance
CPT/HCPCS: 97802

== ENCOUNTER → 2023-01-01 08:43 | Outpatient (CLI) | payer OTHER, SELFPAY ==
[2023-01-01 10:39] LABS: Alanine Aminotransferase 37 IU/L (<35); Albumin 4.2 g/dL (3.5-5.0); Albumin Globulin Ratio 0.7 (1.0-2.8); Alkaline Phosphatase 92 U/L (38-126); Aspartate Aminotransferase 33 IU/L (14-36); BUN Creatinine Ratio 16.9 (6-22); Bilirubin Total 0.7 mg/dL (0.2-1.3); Blood Urea Nitrogen 12 mg/dL (7-17); Calcium 8.7 mg/dL (8.4-10.2); Carbon Dioxide 30 mmol/L (22-32); Chloride 102 mmol/L (98-107); Estimated Glomerular Filt Rate > 60 mL/min (>60); Globulin 5.8 g/dL (1.7-4.1); Glucose 141 mg/dL (70-100); HEMOLYSIS < 15 (0-50); Potassium 3.3 mmol/L (3.4-5.1); Sodium 138 mmol/L (137-145)
[2023-01-02 08:37] LABS: x Labcorp Estim. Avg Glu (eAG) 174 mg/dL (.); x Labcorp Hemoglobin A1c 7.7 % (4.8-5.6)
== END ==
PROVIDERS: Family Provider Registered Nurse; PCP Registered Nurse; Referring Provider Registered Nurse; Visit Provider Registered Nurse
DX: E11.9 Type 2 diabetes mellitus without complications (principal)
CPT/HCPCS: 36415; 80053; 83036

== ENCOUNTER → 2023-01-16 08:06 | Outpatient (CLI) | payer OTHER, SELFPAY ==
--- NOTE | 2023-01-16 | DI.CT.S_ITS ---
PROCEDURE: CT ABDOMEN ADRENAL PROTOCOL INDICATIONS: Hyperaldosteronism, unspecified TECHNIQUE: Noncontrast 3 mm thick sections acquired from the diaphragms to the iliac crests. After the administration of intravenous contrast, 3 mm thick venous-phase and 15-minute delayed images acquired from the diaphragms to the iliac crests. For radiation dose reduction, the following was used: automated exposure control, adjustment of mA and/or kV according to patient size. COMPARISON: None. FINDINGS: Image quality: Good Lower chest: Right lower lobe granuloma. Solid organs: Liver is unremarkable. Gallbladder is unremarkable. No pathologic dilation of the biliary tree or pancreatic duct. No splenomegaly. No adrenal nodules. No hydronephrosis. Vessels and lymph nodes: The main portal vein is patent. No pathologic adenopathy by size criteria. Bowel and peritoneum: No evidence of small bowel obstruction or ascites. Body wall: Tiny fat containing umbilical hernia. Bones: No acute or suspicious osseous finding. There are degenerative changes. IMPRESSION: No acute or suspicious abnormality identified on CT abdomen. No discrete adrenal nodule. Dictated by: Boo Wilson M.D. on 01/16/2023 at 10:07 Approved by: Boo Wilson M.D. on 01/16/2023 at 10:10
== END ==
PROVIDERS: Family Provider Registered Nurse; PCP Registered Nurse; Referring Provider Registered Nurse; Visit Provider Registered Nurse
DX: E26.9 Hyperaldosteronism, unspecified (principal); E87.6 Hypokalemia
CPT/HCPCS: 74170; Q9967

== ENCOUNTER → 2023-05-30 08:11 | Outpatient (CLI) | payer OTHER, SELFPAY ==
--- NOTE | 2023-05-30 | DI.US.S_ITS ---
ULTRASOUND OF LEFT BREAST: 05/30/2023 CLINICAL: 6 month follow-up of cysts. Comparison is made to exams dated: 05/30/2023 mammogram, 10/03/2022 ultrasound, 10/03/2022 mammogram, 08/22/2022 mammogram, and 01/10/2019 mammogram - [facility]. Real-time ultrasound of the left breast was performed. Jacobo scale images of the real-time examination were reviewed. There are benign duct ectasia in the left breast in the sub-areolar depth that are incidental findings. There is a stable 0.9 cm x 0.9 cm x 0.9 cm oval cyst with a smooth internal wall in the left breast at 4 o'clock middle depth 6 cm from the nipple. This oval cyst is hypoechoic with a well-defined boundary, internal echoes, and posterior acoustic enhancement. This correlates with mammography findings. Color flow imaging demonstrates that there is an adjacent vascularity. IMPRESSION: PROBABLY BENIGN The stable 0.9 cm x 0.9 cm x 0.9 cm oval cyst in the left breast is consistent with a complicated cyst and is probably benign. A follow-up mammogram and an ultrasound in 6 months is recommended to demonstrate stability. This exam was interpreted at Station ID: [id number]. Electronically Signed By: Boo hemphill/:05/30/2023 09:52:59 letter sent: Followup Recommended Ultrasound BI-RADS: 3 Probably benign
--- NOTE | 2023-05-30 | DI.MG.S_ITS ---
UNILATERAL LEFT DIGITAL DIAGNOSTIC MAMMOGRAM 3D/2D SHORT-TERM FOLLOW-UP: 05/30/2023 CLINICAL: Short term follow up for the left breast. Comparison is made to exams dated: 10/03/2022 mammogram, 08/22/2022 mammogram, and 01/10/2019 mammogram - [facility]. The left breast is heterogeneously dense, which may obscure small masses (category c / 51-75% glandular tissue). There is a stable 1.4 cm oval mass with a circumscribed margin in the left breast at 5 o'clock middle depth. This is seen in additional views. No other significant masses or calcifications are seen in the breast. IMPRESSION: INCOMPLETE: NEEDS ADDITIONAL IMAGING EVALUATION The stable 1.4 cm oval mass in the left breast is indeterminate. An ultrasound is recommended. Based on the Tyrer Cuzick model (a risk assessment model) the patient's lifetime risk is 7.3% and her 10 year risk is 2.5%. According to the ACR, ACS, and NCCN guidelines, an annual breast MRI exam along with mammogram is recommended if the patient's lifetime risk is 20% or greater. This exam was interpreted at Station ID: [id number]. NOTE: For mammograms, a report in lay terms will be sent to the patient. Approximately 15% of breast malignancies will not be visualized mammographically. In the management of a palpable breast mass, a negative mammogram must not discourage biopsy of a clinically suspicious lesion. Electronically Signed By: Boo Wilson M.D. lc/:05/30/2023 09:50:08 ACR BI-RADS Category 0: Incomplete 3340F
== END ==
PROVIDERS: Family Provider Registered Nurse; PCP Registered Nurse; Referring Provider Registered Nurse; Visit Provider Registered Nurse
DX: R92.8 Other abnormal and inconclusive findings on diagnostic imaging of breast (principal); N60.02 Solitary cyst of left breast
CPT/HCPCS: 76642; 77065; G0279

== ENCOUNTER → 2023-08-14 06:42 | Outpatient (CLI) | payer OTHER, SELFPAY ==
--- NOTE | 2023-08-14 | DI.ECHO.S_ITS ---
[facility] +---------+ : : [address] : : : : [id number] : : : : Phone: [phone]+ Echocardiogram Report + + :Name: BOONE LADD Study Date: 08/14/2023 Height: 64 in : :[facility] ReadingLocation: Weight: 158 lb : : Gender: Female BSA: 1.8 m2 : :: 1965 Age: 58 yrs BP: 137/98 mmHg: :Reason For Study: ASCENDING AORTA ANEURYSM : :Ordering Physician: GUSTABO, : :VANDANA Performed By: Iram Alexander : :Referring: VANDANA CALDWELL : + + Interpretation Summary 1) Normal left ventricular thickness, size, wall motion, and systolic function (EF 55-60%). 2) Normal right ventricular size and function. 3) No significant valvular abnormalities. 4) The ascending aorta is mildly enlarged at 4.1cm. 5) Compared to the Echo done 08/23/2022, no significant change. Procedure: A two-dimensional transthoracic echocardiogram with color flow and Doppler was performed. The study quality was technically adequate. Comparison is made with the echocardiogram of 08/23/2022. The patient was in sinus rhythm with heart rates between 57-66 bpm during the exam. Left Ventricle: The left ventricle is normal in size and wall thickness. The ejection fraction is estimated to be 55-60%. Left ventricular systolic function appears normal without focal wall motion abnormalities. Right Ventricle: The right ventricle is normal in size and function. Right ventricular systolic function is borderline reduced. Atria: The left atrial size is normal. Right atrial size is normal. There is no Doppler evidence for an interatrial shunt. Mitral Valve: The mitral valve is normal in structure and function. There is trace mitral regurgitation. Aortic Valve: The aortic valve is trileaflet. The aortic valve opens well. There is no aortic valve stenosis. There is mild aortic regurgitation. Tricuspid Valve: The tricuspid valve is normal in structure and function. There is a trace or physiologic amount of tricuspid regurgitation. Pulmonary artery pressures cannot be estimated because of the lack of a measurable TR jet velocity. Pulmonic Valve: The pulmonic valve leaflets are thin and pliable; valve motion is normal. There is no pulmonic valvular regurgitation. Great Vessels: The aortic root is normal size. The ascending aorta is mildly enlarged. The IVC is of normal diameter and collapses greater than 50% with a sniff. This suggests a low right atrial pressure of 3 mm Hg. Pericardium/ Pleura There is no pericardial effusion. There is no pleural effusion. MMode/2D Measurements & Calculations LVIDd: 4.2 cm LVOT diam: 2.1 cm LVIDs: 3.1 cm Ao root diam: 3.0 cm FS: 27.6 % asc Aorta Diam: 4.1 cm EPSS: 0.94 cm Ao Arch Diam (Prox Trans): 2.8 cm IVSd: 1.1 cm LVPWd: 1.1 cm LV love. diameter/BSA (cm/m^2): 2.4 LV sys. diameter/BSA (cm/m^2): 1.7 LA A2 area: 18.0 cm2 RA long axis: 4.1 cm LA A4 area: 12.1 cm2 RA area: 11.6 cm2 LA length (vol): 4.5 cm RA vol: 28.1 ml LA vol: 40.9 ml RA : 15.9 ml/m2 LA vol index: 23.1 ml/m2 IVC diam: 1.1 cm RVD1 (basal): 3.8 cm RVD2 (mid): 3.2 cm TAPSE: 1.6 cm Doppler Measurements & Calculations Ao V2 max: 145.0 cm/sec LVOT Max Ranjit: 82.0 cm/sec Ao V2 mean: 105.3 cm/sec LV V1 max P.7 mmHg Ao max P.4 mmHg LV V1 VTI: 19.4 cm Ao mean P.0 mmHg SAQIB(I,D): 1.9 cm2 Ao V2 VTI: 34.6 cm SAQIB(V,D): 1.9 cm2 sev ratio: 0.56 SAQIB indexed to BSA (cm^2/m^2): 1.1 MV E max ranjit: 47.1 cm/sec PA V2 max: 66.0 cm/sec MV A max ranjit: 91.0 cm/sec PA V2 mean: 47.6 cm/sec MV E/A: 0.52 PA mean P.97 mmHg Med Peak E' Ranjit: 4.6 cm/sec PA pr(Accel): 46.5 mmHg E/E' med: 10.3 Lat Peak E' Ranjit: 9.2 cm/sec E/E' lat: 5.1 E/e' average: 7.7 MV dec time: 0.32 sec SV(LVOT): 65.8 ml Reading Physician:03:22 PM
== END ==
PROVIDERS: Family Provider Registered Nurse; PCP Registered Nurse; Referring Provider Internal Medicine Cardiovascular Disease; Visit Provider Internal Medicine Cardiovascular Disease
DX: I35.1 Nonrheumatic aortic (valve) insufficiency (principal); I77.89 Other specified disorders of arteries and arterioles
CPT/HCPCS: 93306

== ENCOUNTER → 2023-12-14 08:46 | Outpatient (CLI) | payer OTHER, SELFPAY ==
--- NOTE | 2023-12-14 | DI.US.S_ITS ---
LIMITED ULTRASOUND OF LEFT BREAST: 12/14/2023 CLINICAL: 6 month follow-up of cysts. Comparison is made to exams dated: 12/14/2023 mammogram, 05/30/2023 ultrasound, 05/30/2023 mammogram, 10/03/2022 ultrasound, and 10/03/2022 mammogram - [facility]. Color flow ultrasound of the left breast was performed. Jacobo scale images of the real-time examination were reviewed. There is a 0.9 cm x 1 cm x 0.6 cm oval cyst with debris in the left breast at 4 o'clock middle depth 6 cm from the nipple. This oval cyst with debris is anechoic with posterior acoustic enhancement. This abnormality is not significantly changed and correlates with mammography findings. Color flow imaging demonstrates that there is an adjacent vascularity. IMPRESSION: PROBABLY BENIGN The 1 cm cyst with debris in the left breast is consistent with a complicated cyst and is probably benign. A follow-up left ultrasound in 6 months is recommended to demonstrate continued stability. Findings and recommendations were conveyed to the patient at time of exam. This exam was interpreted at Station ID: [id number]. Electronically Signed By: Tanna israel/:12/14/2023 10:53:38 letter sent: Followup Recommended Ultrasound BI-RADS: 3 Probably benign
--- NOTE | 2023-12-14 09:53 | DI.MG.S_ITS ---
Patient Name: BOONE LADD date: 1965 Sex: F Attending Physician: Chaz Indications: Date: 12/14/2023 10:19 At the request of: SHAUNNA SMALLWOOD Procedure: MM diagnostic mammo BI BILATERAL DIGITAL DIAGNOSTIC MAMMOGRAM 3D/2D: 12/14/2023 CLINICAL: Patient returns for a 6 month follow up of the left breast, due for bilateral exam. Comparison is made to exams dated: 05/30/2023 mammogram, 10/03/2022 mammogram, 08/22/2022 mammogram, 01/10/2019 mammogram, and 08/10/2017 mammogram - [facility]. Both breasts are heterogeneously dense, which may obscure small masses (category c / 51-75% glandular tissue). There is a stable oval mass with a circumscribed margin in the left breast at 4 o'clock middle depth. This is seen in additional views. No other significant masses, calcifications, or other findings are seen in either breast. Mammograms are otherwise stable. IMPRESSION: INCOMPLETE: NEEDS ADDITIONAL IMAGING EVALUATION The oval mass in the left breast is stable. An ultrasound is recommended. This was performed immediately following this exam. Right breast mammogram is normal. Based on the Tyrer Cuzick model (a risk assessment model) the patient's lifetime risk is 7.3% and her 10 year risk is 2.5%. According to the ACR, ACS, and NCCN guidelines, an annual breast MRI exam along with mammogram is recommended if the patient's lifetime risk is 20% or greater. This exam was interpreted at Station ID: [id number]. Continued Report - Page 2 of 2 Patient Name: BOONE LADD date: 1965 Sex: F Attending Physician: Chaz Indications: Date: 12/14/2023 10:19 At the request of: SHAUNNA SMALLWOOD Procedure: MM diagnostic mammo BI NOTE: For mammograms, a report in lay terms will be sent to the patient. Approximately 15% of breast malignancies will not be visualized mammographically. In the management of a palpable breast mass, a negative mammogram must not discourage biopsy of a clinically suspicious lesion. Electronically Signed By: Tanna israel/:12/14/2023 10:19:18 ACR BI-RADS Category 0: Incomplete 3340F
== END ==
LOC: MAMMO 08:47
PROVIDERS: PCP Registered Nurse; Referring Provider Registered Nurse; Visit Provider Registered Nurse
DX: R92.8 Other abnormal and inconclusive findings on diagnostic imaging of breast (principal); N60.02 Solitary cyst of left breast; R92.333 Mammographic heterogeneous density, bilateral breasts
CPT/HCPCS: 76642; 77066; G0279

== ENCOUNTER 2023-12-20 09:18 | Day surgery (SDC) | payer OTHER, SELFPAY ==
--- NOTE | 2023-12-20 10:15 | PM.HP.1 ---
History of Present Illness History of Present Illness Date Patient Seen: 12/20/23 Time Patient Seen: 10:16 Chief complaint: Screening Colonoscopy Narrative: Anastasiya is a 58-year-old woman who presents for a screening colonoscopy. She has never had 1 before. She has a diagnosis of multiple myeloma. No family history of colon cancer. [facility] Medical History (Updated 12/20/23 @ 10:16 by Suleiman Dial MD) Cervicogenic headache Surgical History Status post hysterectomy Status post LASIK surgery Family History Brother Age: 66 Heart disease Hypertension High cholesterol Brother Age: 58 Hypertension High cholesterol Father Heart disease Hypertension High cholesterol Stroke Grandfather Cancer Grandmother Cancer Hypertension High cholesterol Mother Lung cancer Skin cancer Heart disease Hypertension High cholesterol Sister Age: 63 Heart disease Hypertension High cholesterol Social History household members: spouse Smoking Status: Never smoker Meds Home Medications and Allergies Home Medications Medication Instructions Recorded Confirmed Type atorvastatin 20 mg tablet (Lipitor) 20 mg PO QDAY ##0 08/29/17 12/20/23 History ibuprofen 800 mg tablet 800 mg PO TIDP PRN Pain (Scale 08/29/17 03/08/22 History Score 1-3) ##0 levothyroxine 175 mcg tablet 0.175 mg PO QAM ##0 08/29/17 12/20/23 History telmisartan 80 mg tablet (Micardis) 80 mg PO QDAY ##0 08/29/17 03/08/22 History nadolol 80 mg tablet 80 mg PO DAILY #30 tabs 09/12/18 12/20/23 Rx naratriptan 2.5 mg tablet 2.5 mg PO .COMPLEX PRN migraine 09/12/18 03/08/22 Rx headache #12 tabs rizatriptan 10 mg tablet (Maxalt) 15 mg PO BID PRN migranes 02/10/19 12/20/23 History benzonatate 100 mg capsule 100 mg PO TID PRN cough #30 caps 03/08/22 03/08/22 Rx peg 3350-electrolytes 236 240 ml PO Q10M #4,000 mL 08/01/23 Rx gram-22.74 gram-6.74 gram-5.86 gram solution (Golytely) insulin glargine 100 unit/mL (3 unit SUBCUT 12/19/23 History mL) subcutaneous pen (Lantus Solostar U-100 Insulin) insulin lispro 100 unit/mL 0 - 15 unit SUBCUT 3XD 12/19/23 12/19/23 History subcutaneous pen amlodipine 10 mg tablet 10 mg PO DAILY 12/20/23 12/20/23 History aspirin 81 mg capsule 81 mg PO DAILY 12/20/23 12/20/23 History cholecalciferol (vitamin D3) 25 25 mcg PO DAILY 12/20/23 12/20/23 History mcg (1,000 unit) capsule cyanocobalamin (vitamin B-12) 5,000 mcg PO DAILY 12/20/23 12/20/23 History 5,000 mcg capsule cyclobenzaprine 10 mg tablet 10 mg PO TID PRN cancer 12/20/23 12/20/23 History diazepam 5 mg tablet 5 mg PO BID PRN Back Pain 12/20/23 12/20/23 History lenalidomide 25 mg capsule 25 mg PO DAILY 12/20/23 12/20/23 History loperamide 2 mg tablet 2 mg PO Q4H PRN diahrrea 12/20/23 12/20/23 History rosuvastatin 40 mg tablet 40 mg PO DAILY 12/20/23 12/20/23 History spironolactone 25 mg tablet 25 mg PO DAILY 12/20/23 12/20/23 History valacyclovir 500 mg tablet 500 mg PO BID 12/20/23 12/20/23 History Allergies Allergy/AdvReac Type Severity Reaction Status Date / Time Sulfa (Sulfonamide Allergy Unknown Swelling Verified 12/20/23 09:52 Antibiotics) of Lip/Tongue/Throat Exam Const General: No acute distress Resp Effort & Inspection: normal respiratory effort Assessment & Plan Assessment and plan (1) Colon cancer screening: Status: Acute Plan We reviewed the risks and benefits of colonoscopy for colon cancer screening and she would like to proceed.
[2023-12-20 10:18] VITALS: BP 138/93; PULSE 58; RESP 16; TEMP 36.3; O2SAT 99
[2023-12-20] MEDS: LACTATED RINGERS 1,000 ML 42 ML IV (10:31)
--- NOTE | 2023-12-20 11:22 | PM.OP.COLON ---
Operative Date/Time/Diagnoses Date of procedure: 12/20/23 Time of procedure: 11:22 Pre-op diagnosis: Colon cancer screening Post-op diagnosis: same Procedure & Clinicians Study performed: Colonoscopy Same procedure as scheduled: Yes Surgeon: Suleiman Dial Procedure Notes Procedure in detail: Surgeon: Suleiman Dial MD Anesthesia: Clarisse Howard DO Procedure: The patient was brought to the endoscopy suite, placed in left lateral decubitus position. The patient was connected to monitoring devices. A time-out was performed. Sedation was administered. Once the patient was adequately sedated, a digital rectal exam was performed and was normal. The scope was then inserted and advanced to the cecum where the appendiceal orifice was identified and photographed. The scope was then slowly withdrawn over greater than 6 minutes. The mucosa was thoroughly inspected. No abnormalities were found. The scope was retroflexed in the rectum. Internal hemorrhoids were noted. The scope was straightened and removed. The patient was awakened and brought to recovery. Scope withdrawal time: 8 minutes Sedation time: 22 minutes EBL: 0 Findings: Internal hemorrhoids Post-procedure Recommendations: Colonoscopy in 10 years Disposition: PACU
[2023-12-20 11:25] VITALS: BP 98/67; PULSE 57; RESP 17; TEMP 37.1; O2SAT 98
[2023-12-20 11:30] VITALS: BP 108/56; PULSE 61; RESP 16; O2SAT 99
[2023-12-20 11:34] VITALS: BP 112/72; PULSE 58; RESP 14; O2SAT 99
[2023-12-20 11:40] VITALS: BP 117/78; PULSE 53; RESP 19; TEMP 36.3; O2SAT 97
== END 2023-12-20 11:59 | disposition home or self-care (01) ==
PROVIDERS: PCP Registered Nurse; Referring Provider Surgery; Visit Provider Surgery
PROC: 0DJD8ZZ Inspection of Lower Intestinal Tract, Via Natural or Artificial Opening Endoscopic (ICD-10-PCS; CPT 45378; principal; 2023-12-20 10:30)
DX: Z12.11 Encounter for screening for malignant neoplasm of colon (principal); K64.8 Other hemorrhoids
CPT/HCPCS: 45378; 82962; J2704

== ENCOUNTER → 2024-06-13 10:45 | Outpatient (CLI) | payer OTHER, SELFPAY ==
--- NOTE | 2024-06-13 10:46 | DI.US.S_ITS ---
ULTRASOUND OF LEFT BREAST: 06/13/2024 CLINICAL: Patient returns today to evaluate a focal asymmetry in the left breast. Comparison is made to exams dated: 12/14/2023 ultrasound, 12/14/2023 mammogram, 05/30/2023 ultrasound, 05/30/2023 mammogram, 10/03/2022 ultrasound, and 10/03/2022 mammogram - [facility]. Color flow and real-time ultrasound of the left breast were performed. Jacobo scale images of the real-time examination were reviewed. There is a 0.7 cm x 0.8 cm x 0.7 cm oval cyst with debris with a septated internal wall in the left breast at 4 o'clock middle depth 6 cm from the nipple. This oval cyst with debris is anechoic with posterior acoustic enhancement. This abnormality is not significantly changed and correlates with mammography findings. Color flow imaging demonstrates that there is an adjacent vascularity. IMPRESSION: PROBABLY BENIGN The 0.7 cm x 0.8 cm x 0.7 cm oval cyst with debris in the left breast is consistent with a complicated cyst and is probably benign. A follow-up bilateral mammogram and a left ultrasound in 12 months is recommended to document senior living stability. Findings and recommendations were conveyed to the patient during today's evaluation. This exam was interpreted at Station ID: [id number]. Electronically Signed By: Devon Tran M.D. aty/:06/13/2024 11:17:57 letter sent: Followup Recommended ACR BI-RADS Category 3: Probably Benign
== END ==
PROVIDERS: PCP Registered Nurse; Referring Provider Registered Nurse; Visit Provider Registered Nurse
DX: N60.02 Solitary cyst of left breast (principal)
CPT/HCPCS: 76642

== ENCOUNTER → 2024-09-15 | Outpatient (CLI) | payer OTHER, SELFPAY ==
--- NOTE | 2024-09-15 | DI.MG.S_ITS ---
BILATERAL DIGITAL DIAGNOSTIC MAMMOGRAM 3D/2D: 09/15/2024 CLINICAL: Breast pain. Comparison is made to exams dated: 12/14/2023 mammogram, 05/30/2023 mammogram, 10/03/2022 mammogram, 08/22/2022 mammogram, and 01/10/2019 mammogram - [facility]. The breasts are heterogeneously dense, which may obscure small masses (category c / 51-75% glandular tissue). A BB marker was placed in the area of clinical concern in the right breast, and no mammographic abnormality is identified. No significant masses, calcifications, or other findings are seen in either breast. IMPRESSION: INCOMPLETE: NEED ADDITIONAL IMAGING EVALUATION No mammographic abnormality in the area of clinical concern in the right breast. Recommend further evaluation with targeted breast ultrasound, which will immediately follow this exam. Based on the Tyrer Cuzick model (a risk assessment model) the patient's lifetime risk is 7.2% and her 10 year risk is 2.6%. According to the ACR, ACS, and NCCN guidelines, an annual breast MRI exam along with mammogram is recommended if the patient's lifetime risk is 20% or greater. This exam was interpreted at Station ID: [id number]. NOTE: For mammograms, a report in lay terms will be sent to the patient. Approximately 15% of breast malignancies will not be visualized mammographically. In the management of a palpable breast mass, a negative mammogram must not discourage biopsy of a clinically suspicious lesion. Electronically Signed By: Annalise Mccarty M.D., Ph.D. eb/:09/16/2024 09:15:58 letter sent: Additional Imaging Needed ACR BI-RADS Category 0: Incomplete: Need Additional Imaging Evaluation
--- NOTE | 2024-09-15 10:08 | DI.US.S_ITS ---
LIMITED ULTRASOUND OF RIGHT BREAST: 09/15/2024 CLINICAL: Recent mastitis treated with antibiotics, improving but hog tender 9:00. Comparison is made to exams dated: 09/15/2024 mammogram and 12/14/2023 mammogram - [facility]. Real-time ultrasound of the right breast 9 o'clock region was performed. Jacobo scale images of the real-time examination were reviewed. No sonographic abnormality is seen in the area of clinical concern in the right breast at 9 o'clock, 7 cm from the nipple. IMPRESSION: NEGATIVE No sonographic abnormality in the area of clinical concern. No mammographic or sonographic evidence of malignancy. A 1 year screening mammogram is recommended. Of note, patient is due for left breast mammogram and ultrasound in December 2024 for follow up of previously described probably benign findings. Findings and recommendations were conveyed to the patient during today's evaluation. This exam was interpreted at Station ID: [id number]. Electronically Signed By: Annalise Mccarty M.D., Ph.D. eb/:09/17/2024 10:14:04 letter sent: Clinical Evaluation ACR BI-RADS Category 1: Negative
== END ==
LOC: MAMMO 10:07
PROVIDERS: PCP Registered Nurse; Referring Provider Registered Nurse; Visit Provider Registered Nurse
DX: R92.2 Inconclusive mammogram (principal); N64.4 Mastodynia; R92.333 Mammographic heterogeneous density, bilateral breasts
CPT/HCPCS: 76642; 77066; G0279